=== PATIENT | female | born 1940 | race Caucasian/White ===

== ENCOUNTER 2019-02-11 16:42 | Inpatient (IN) | payer MEDICARE ==
--- NOTE | 2019-02-11 17:17 | ED ---
Upper Extremity Pain - HPI Summary HPI Summary: The patient is a 78 y/o F arriving by ambulance to [facility] accompanied by son with a chief complaint of fall last night. She reports that she was at home and became dizzy, causing her to fall. She is now experiencing pain in the right humerus rated 8/10 in severity. She was administered Fentanyl by EMS. She denies any CP, SOB, or head injury. She was able to ambulate today without pain. Her son reports that he found her on the floor next to her bed last night around 2100, after they had dinner and he left her in the kitchen chair but left the home. She told him that she fell in the bathroom and dragged herself into the bedroom, but she doesn't think she hit her head. Her son notes that she has been falling more frequently over the last six months due to weakness in the legs, and she has had a decreased appetite and confusion as well. He also states that he has noticed low blood pressure and elevated heart rate over the last few months. She lives at home in an apartment across the [address] from her son. She often stays at home in bed. She last fell in July 2018. Son is concerned for Marfan syndrome. PMHx: thyroid disease. Nonsmoker, rare EtOH, no substance use. Medications reviewed. Allergies noted. - History of Current Complaint Chief Complaint: EDFall Stated Complaint: FALL PER EMS Time Seen by Provider: 02/11/19 16:48 Hx Obtained From: Patient Mechanism Of Injury: Fall From A Standing Position Onset/Duration: Started Hours Ago, Traumatic, Still Present Timing: Constant Severity Initially: Moderate Severity Currently: Moderate Pain Location: Arm - right Character: Aching Aggravating Factor(s): Nothing Alleviating Factor(s): Nothing Associated Signs & Symptoms: Positive: Weakness - legs, Other - dizziness; Negative: decreased appetite, pain in legs, episodes of confusion; unsure of head injury. Negative: Chest Pain, SOB - Allergies/Home Medications Allergies/Adverse Reactions: Allergies Allergy/AdvReac Type Severity Reaction Status Date / Time No Known Allergies Allergy Verified 02/11/19 16:51 Home Medications: Home Medications Levothyroxine TAB* [Synthroid TAB*] 88 mcg PO DAILY 02/11/19 [History Confirmed 02/11/19] PMH/Surg Hx/FS Hx/Imm Hx Endocrine/Hematology History: Reports: Hx Thyroid Disease Denies: Hx Diabetes Cardiovascular History: Reports: Hx Hypotension Denies: Hx Hypertension Musculoskeletal History: Denies: Hx Osteoporosis - Surgical History Surgical History: Yes Surgery Procedure, Year, and Place: INGUINAL HERNIA REPAIR Infectious Disease History: Yes Infectious Disease History: Denies: Traveled Outside the [place] in Last 30 Days - Family History Known Family History: Positive: Cardiac Disease Negative: Diabetes - Social History Alcohol Use: Rare Hx Substance Use: No Substance Use Type: Reports: None Hx Tobacco Use: No Smoking Status (MU): Never Smoked Tobacco Review of Systems Negative: Chest Pain Negative: Shortness Of Breath Positive: Other - decreased appetite Neurological: Other - dizziness, episodes of confusion; unsure of head injury Positive: Weakness - legs All Other Systems Reviewed And Are Negative: Yes Physical Exam - Summary Physical Exam Summary: Constitutional: Well-developed, Well-nourished, Alert. (-) Distressed Skin: Warm, Dry HENT: Normocephalic; Atraumatic Eyes: Conjunctiva normal Neck: Musculoskeletal ROM normal neck. Mild tenderness to palpation of the right paraspinal muscles. (-) JVD, (-) Stridor, (-) Tracheal deviation Cardio: Irregularly irregular, rate normal, Heart sounds normal; Intact distal pulses; The pedal pulses are 2+ and symmetric. Radial pulses are 2+ and symmetric. (-) Murmur Pulmonary/Chest wall: Effort normal. (-) Respiratory distress, (-) Wheezes, (-) Rales Abd: Soft, (-) tenderness, (-) Distension, (-) Guarding, (-) Rebound Musculoskeletal: Right shoulder is swollen with a deformity just distal to the shoulder, Good pulses, Neurovascular intact, Left arm is normal(-) Edema Lymph: (-) Cervical adenopathy Neuro: Alert, Oriented x3 but mildly confused Psych: Mood and affect Normal Triage Information Reviewed: Yes Vital Signs On Initial Exam: Initial Vitals Temp Pulse Resp BP Pulse Ox 101.2 F 104 18 111/62 96 02/11/19 16:47 02/11/19 16:47 02/11/19 16:47 02/11/19 16:47 02/11/19 16:47 Vital Signs Reviewed: Yes - [place] Coma Scale Best Eye Response: 4 - Spontaneous Best Motor Response: 6 - Obeys Commands Best Verbal Response: 4 - Confused Coma Scale Total: 14 Procedures - Sedation Patient Received Moderate/Deep Sedation with Procedure: No Diagnostics - Vital Signs Vital Signs Temp Pulse Resp BP Pulse Ox 02/11/19 16:47 101.2 F 104 18 111/62 96 - Laboratory Result Diagrams: 02/11/19 17:51 02/11/19 17:51 Lab Statement: Any lab studies that have been ordered have been reviewed, and results considered in the medical decision making process. - Radiology CXR Radiology Interpretation Completed By: Radiologist Summary of Radiographic Findings: Impression: 1. No evidence for active cardiopulmonary disease. 2. Displaced fracture of the proximal right humerus. ED physician has reviewed this report. R Shoulder XR Radiology Interpretation Completed By: Radiologist Summary of Radiographic Findings: Impression: Displaced fracture of the surgical neck of the humerus. ED physician has reviewed this report. - CT Brain CT CT Interpretation Completed By: Radiologist Summary of CT Findings: Impression: 1. There is age-related diffuse cerebral and cerebellar volume loss and chronic microvascular ischemic disease. 2. No acute intracranial pathology. ED physician has reviewed this report. - EKG 1811 Cardiac Rate: Tachycardia - 102 bpm EKG Rhythm: Sinus Tachycardia Summary of EKG Findings: Sinus tachycardia at 102 bpm, normal [place], normal QRS, normal QTc, normal axis, normal ST, T-wave inversions in V2-V5. Overall nonspecific EKG. ED physician has reviewed and interpreted this EKG. Course/Dx - Course Course Of Treatment: Patient is a 78 year-old female presenting with pain in the left humerus after sustaining a fall last night around 2100 following becoming dizzy. Her son reports that he noticed more frequent falls, decreased appetite, confusion, low blood pressure, and elevated heart rate over the last few months. She denies head injury but is not sure. She spends a lot of time in bed. Physical exam reveals mild tenderness to palpation of the right paraspinal muscles, right shoulder is swollen with a deformity just distal to the shoulder , good pulses, neurovascular intact, left arm is normal, and mild confusion. Blood work reveals WBCs of 12.3, RBCs of 3.22, slight anemia, absolute neutrophils of 10.1, absolute lymphocytes of 0.8, absolute monocytes of 1.2, sodium of 134, chloride of 100, glucose of 137, calcium of 8.4, AST of 40, BNP of 155, total protein of 6.0, and albumin of 3.0. An EKG at 181 reveals sinus tachycardia at 102, overall nonspecific EKG. Brain CT is negative for acute intracranial changes. Chest x-ray is negative for active cardiopulmonary disease but shows displaced fracture of the proximal right humerus. Right shoulder x-ray is positive for displaced fracture of the surgical neck of the humerus. Patient's right arm placed in sling. Dr. Mills from orthopedics will consult for the patient. Dr. Pratt from hospitalist services accepts the patient for admission. Patient understands and agrees with plan. Diagnosis of pre-syncope, mulitple falls, right humerus fracture. - Diagnoses Provider Diagnoses: Pre-syncope, Multiple falls, Right humeral fracture - Physician Notifications Discussed Care of Patient With: Dario Pratt - hospitalist Time Discussed With Above Provider: 20:53 Instructed by Provider To: Other - I discussed the patients case with Dr. Pratt , who accepts the patient for admission. I spoke with Dr. Mills at 2144, and she will do an orthopedic consult for the patient. Discharge ED - Sign-Out/Discharge Documenting (check all that apply): Patient Departure - Patient accepted for admission by Dr. Pratt. - Discharge Plan Condition: Stable Disposition: ADMITTED TO [facility] Referrals: Antonio Cooney MD [Primary Care Provider] - - Billing Disposition and Condition Condition: STABLE Disposition: Admitted to [facility] - Attestation Statements Document Initiated by Dawson: Yes Documenting Scribe: Antionette Green Provider For Whom Dawson is Documenting (Include Credential): Dr. Lisa Baum MD Scribe Attestation: Antionette Mosley, scribed for Dr. Lisa Baum MD on 02/11/19 at 2316. Scribe Documentation Reviewed: Yes Provider Attestation: The documentation as recorded by the Antionette alston accurately reflects the service I personally performed and the decisions made by me, Dr. Lisa Baum MD Status of Scribe Document: Viewed
[2019-02-11 18:05] LABS: ABS Eosinophils 0.1 10^3/ul (0-0.6); ABS Lymphocytes 0.8 10^3/ul (1.0-4.8); ABS Monocytes 1.2 10^3/ul (0-0.8); ABS Neutrophils 10.1 10^3/ul (1.5-7.7); Eosinophil % 0.7 %; Hematocrit 25 % (35-47); Hemoglobin 8.1 g/dL (12.0-16.0); Lymphocyte % 6.9 %; Mean Corpuscular HGB Conc 33 g/dL (31-36); Mean Corpuscular Hemoglobin 25 pg (27-31); Mean Corpuscular Volume 76 fL (80-97); Mean Platelet Volume 7.5 fL (7.4-10.4); Platelet Count 340 10^3/uL (150-450); Red Blood Count 3.22 10^6 /uL (3.70-4.87); Red Cell Distribution Width 17 % (10-15); White Blood Count 12.3 10^3/uL (3.5-10.8)
[2019-02-11 18:27] LABS: BUN/Creatinine Ratio 16.2 (8-20); Calcium 8.4 mg/dL (8.6-10.3); EGFR African American 91.8 (>60); EGFR Non-African American 75.9 (>60); Potassium 4.1 mmol/L (3.5-5.0); Total Bilirubin 0.5 mg/dL (0.2-1.0)
[2019-02-11 18:29] LABS: Troponin I 0.01 ng/mL (<0.03)
[2019-02-12 04:20] LABS: TSH (Thyroid Stimulating Horm) 2.92 mcIU/mL (0.34-5.60)
[2019-02-12 04:22] LABS: Free T4 1.3 ng/dL (0.61-1.12)
[2019-02-12] MEDS: NS 0.9% 1000 ML** 1,000 ML IV SCH ×2 (04:42→15:07)
[2019-02-12] MEDS ORDERED: Ketorolac INJ* 15 MG/ML 1 ML VIAL IV PUSH ONE (04:47)
[2019-02-12] MEDS: Levothyroxine TAB* 88 MCG TAB PO SCH (05:13)
--- NOTE | 2019-02-12 05:42 | HP ---
CC: Dr. Antonio Cooney* ADMISSION HISTORY AND PHYSICAL: DATE OF ADMISSION: 02/12/19 PRIMARY CARE PHYSICIAN: Dr. Antonio Cooney. CHIEF COMPLAINT: Fall. HISTORY OF PRESENT ILLNESS: This is a 78-year-old female with past medical history of hypothyroidism, was brought in by ambulance after a fall, history was obtained by reviewing ER chart as the patient herself had some memory impairment and is unable to give much history. According to records the patient became dizzy and fell and she has been experiencing pain in the right humerus 810 in severity. There is no head injury, any chest pain or shortness of breath and for the last 6 months according to the son the patient has been having recurrent falls and day before yesterday when the patient's son went home he noted that the patient was on her floor next to the bed around 9 p.m. after they had dinner and he left for kitchen and he left her in the kitchen and she told him that she fell in her bathroom and dragged herself into the bedroom. She did not think that she hit her head. Son also stated that the patient had decreased appetite and confusion. The patient herself keeps repeating the question of how she got here, did my son Gerhard bring me here and kept forgetting the scenario as to how she ended up here. She responds to her name, but unable to tell the month or the year. She is otherwise following all commands, and other than the pain from the fracture site she denies any symptoms. PAST MEDICAL HISTORY: History of hypothyroidism. PAST SURGICAL HISTORY: She has had history of hernia repair many years ago. HOME MEDICATIONS: The patient is currently on levothyroxine 88 mcg oral daily. ALLERGIES: No known documented allergies. FAMILY HISTORY: Noncontributory at her age of 78. SOCIAL HISTORY: The patient denies any smoking, alcohol, or drug use. 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 Lives with her son. REVIEW OF SYSTEMS: Unable to obtain due to the patient's mental status. PHYSICAL EXAMINATION GENERAL: The patient is arousable, responds to her name, but unable to answer questions regarding orientation, although she is able to decipher that she is in the hospital and thinks that it was [facility] based on visual inspection, but keeps forgetting the events that caused her to come to the ER VITAL SIGNS: Temperature was documented of 101.2, heart rate was elevated at 106, respiratory rate 20, saturating 94% on room air, BP was noted to be 101/56. HEAD AND NECK: Atraumatic, normocephalic. Bilateral pupils were reactive. Oral mucosa was moist. Neck was supple. No JVD distention. LUNGS: Clear to auscultation bilaterally. No wheezing, rhonchi, rales. HEART: S1, S2. Regular rate and rhythm ABDOMEN: Soft, nontender. EXTREMITIES: The patient had severe tenderness on the right upper extremities, but no cyanosis, clubbing or edema was noted on the lower extremity. DIAGNOSTIC STUDIES/LAB DATA: CBC was minimally elevated white count of 12.3, hemoglobin and hematocrit was stable at 8.1 and 25, platelet count was noted to be 340. Comprehensive metabolic panel was unremarkable. Random glucose minimally elevated at 137. B camelia was noted to be elevated at 155. Troponin negative. Chest x-ray shows no active cardiopulmonary disease and there was a displaced fracture of the proximal right humerus. Brain CT age-related diffuse cerebral and cerebellar volume loss, chronic microvascular ischemic changes. No acute intracranial pathology. EKG shows sinus tachycardia at 102 beats per minute without any ST elevation, no baseline EKG to compare. IMPRESSION: This is a 78-year-old female with a history of hypothyroidism, here with recurrent falls for the last 6 months, noted to be febrile in the ER without any obvious source of infection, although UA is still pending, also noted to have humeral fracture secondary to fall. ASSESSMENT: 1. Recurrent falls and syncope, likely secondary to cerebral atrophy causing balance issues, but will rule out any cardiovascular causes by doing echocardiogram and carotid Doppler's and monitoring her on telemetry in addition to physical therapy evaluation. 2. The SIRS with elevated temperature and elevated white count and tachycardia. We will add blood cultures, urinalysis which was not performed in the ER. We will add straight cath and influenza A and B, and further antibiotic based on these results. 3. Right humeral fracture. Orthopedic consulted by the ER physician, who will evaluate the patient in the morning. In the meantime, we will keep the patient n.p.o. for possible surgical correction. 4. History of hypothyroidism. Restart home medication. 5. Elevated random glucose. We will check an A1c level. 6. DVT prophylaxis with sequential compression device. 7. Code status. We will discuss with the patient's son Yasmany, who is her healthcare proxy. [id number]/[facility] #: [id number] ADRIANA
[2019-02-12 07:33] LABS: Influenza A Molecular NEGATIVE (Negative); Influenza B Molecular NEGATIVE (Negative)
[2019-02-12] MEDS ORDERED: NS 0.9% 1000 ML** 1,000 ML IV ONE ×2 (07:56→13:47)
[2019-02-12] MEDS ORDERED: Morphine INJ* 2 MG/ML 1 ML SYRINGE (TWO MG - NEW SYRINGE VERSION) IV PRN (08:08)
--- NOTE | 2019-02-12 08:17 | PN ---
Subjective Date of Service: 02/12/19 Interval History: Notified by nurse that manual BP was 78/42 manually. Ordered 1L normal saline bolus and came to assess patient. She was partially sitting up in bed, awake, calm and speaking to staff. Denied dizziness or lightheadedness. Reported feeling fatigued and experiencing pain to her right shoulder was confused as to why she could not move it. Alert and oriented to self only, repeated same questions. Did not remember having fallen or how she arrived to the hospital or that she had a fracture. Family History: Unchanged from Admission Social History: Unchanged from Admission Past Medical History: Unchanged from Admission Objective Active Medications: Acetaminophen (Tylenol Tab*) 975 mg PO TID [facility] Sodium Chloride (Ns 0.9% 1000 Ml) 1,000 mls @ 100 mls/hr IV PER RATE [facility] Last Admin: 02/12/19 04:42 Dose: 100 mls/hr Sodium Chloride (Ns 0.9% 1000 Ml) 1,000 mls @ 1,000 mls/hr IV ED ONCE ONE Stop: 02/12/19 08:55 Levothyroxine Sodium (Synthroid Tab*) 88 mcg PO 0600 [facility] Last Admin: 02/12/19 05:13 Dose: 88 mcg Morphine Sulfate (Morphine Inj (Syringe))*) 2 mg IV Q4H PRN PRN Reason: PAIN - SEVERE Tramadol HCl (Ultram*) 50 mg PO Q6H PRN PRN Reason: PAIN - MODERATE Vital Signs - 8 hr 02/12/19 02/12/19 02/12/19 00:18 00:48 01:00 Temperature Pulse Rate 94 97 94 Respiratory 17 25 19 Rate Blood Pressure 107/60 105/58 (mmHg) O2 Sat by Pulse 97 96 96 Oximetry 02/12/19 02/12/19 02/12/19 01:18 01:48 02:00 Temperature Pulse Rate 98 91 Respiratory 25 10 26 Rate Blood Pressure 108/53 92/46 (mmHg) O2 Sat by Pulse 96 95 Oximetry 02/12/19 02/12/19 02/12/19 02:18 02:31 03:00 Temperature Pulse Rate 91 Respiratory 23 14 20 Rate Blood Pressure 100/56 100/56 (mmHg) O2 Sat by Pulse 94 Oximetry 02/12/19 02/12/19 02/12/19 03:18 03:48 04:00 Temperature Pulse Rate 86 101 89 Respiratory 23 24 Rate Blood Pressure 101/56 103/63 (mmHg) O2 Sat by Pulse 90 94 94 Oximetry 02/12/19 02/12/19 02/12/19 04:13 04:45 04:57 Temperature 99.9 F 98.1 F Pulse Rate 99 99 Respiratory 24 18 18 Rate Blood Pressure 103/63 98/50 (mmHg) O2 Sat by Pulse 94 96 Oximetry Oxygen Devices in Use Now: None Appearance: Thin older woman seen resting in bed calmly, no acute distress noted. Eyes: No Scleral Icterus, PERRLA Ears/Nose/Mouth/Throat: NL Teeth, Lips, Gums, Clear Oropharnyx, Mucous Membranes Moist Neck: NL Appearance and Movements; NL JVP, Trachea Midline Respiratory: Symmetrical Chest Expansion and Respiratory Effort, Clear to Auscultation Cardiovascular: NL Sounds; No Murmurs; No JVD, RRR, No Edema Abdominal: NL Sounds; No Tenderness; No Distention Lymphatic: No Cervical Adenopathy Extremities: No Clubbing, Cyanosis, - - Right arm in sling, 2+ radial pulses, cap refill within 3 seconds. Moderate edema to right shoulder. Skin: No Nodules or Sclerosis, - - Bruise forming to anterior right upper arm. Neurological: - - Alert and oriented to self only. Was aware she was in some kind of hospital. Lines/Tubes/Other Access: Clean, Dry and Intact Peripheral IV Result Diagrams: 02/11/19 17:51 02/11/19 17:51 Assess/Plan/Problems-Billing Assessment: This is a 78 year old female with a past medical history of hypothyroidism who was admitted 02/11/19 s/p fall with right humeral fracture. - Patient Problems (1) Right humeral fracture Current Visit: Yes Status: Acute Code(s): S42.301A - UNSP FRACTURE OF SHAFT OF HUMERUS, RIGHT ARM, INIT SNOMED Code(s): 66886798 Comment: -S/P fall at home in her bathroom, unsure of precipitating factors, patient has impaired cognition. Dr. Mills consulted. -Sling right arm at all times with no weight bearing. -I anticipate that she will need PT/OT, subacute rehab. Will keep her NPO until she is seen by Dr. Mills. (2) Anemia Current Visit: Yes Status: Acute Code(s): D64.9 - ANEMIA, UNSPECIFIED SNOMED Code(s): 506410963 Comment: -Arrived anemic without other labs to compare this to. This could either have contributed to the fall or been caused by the humeral fracture. Patient is hypotensive, tachy. Obtained consent for blood transfusion from sonYasmany. Will transfuse one unit. -Checking vit B12, folate, iron studies. (3) Hypotension Current Visit: Yes Status: Acute Comment: -Blood pressure manually was 78/ 42. Feel this is related to her anemia. One liter normal saline bolus ordered. (4) DVT prophylaxis Current Visit: Yes Status: Acute Code(s): Z29.9 - ENCOUNTER FOR PROPHYLACTIC MEASURES, UNSPECIFIED SNOMED Code(s): 277046628 Comment: -Will hold anticoagulants due to anemia with the potential for active bleed. Continue SCD's. Status and Disposition: Condition: Guarded Condition: Admit inpatient to . Attending: Daria Pratt
[2019-02-12] MEDS: Acetaminophen TAB* 325 MG PO SCH ×3 (08:38→20:31)
[2019-02-12 08:52] LABS: Total Iron Binding Capacity 175 mcg/dL (250-450); Transferrin 125 mg/dL (203-362)
[2019-02-12 08:54] LABS: % Iron Saturation 11 % (15-55); Iron < 20 ug/dL (50-212)
[2019-02-12 09:14] LABS: Ferritin 1397.1 ng/mL (11-307)
[2019-02-12 09:18] LABS: Folate 12.22 ng/mL (>3.99)
--- NOTE | 2019-02-12 10:43 | CONS ---
CC: Dr. Mills CONSULTATION REPORT: DATE OF CONSULT: 02/12/19 CHIEF COMPLAINT: Right shoulder pain. HISTORY OF PRESENT ILLNESS: Jo is a 78-year-old woman who lives at home with her son. She has milligan ffered several falls recently. She fell yesterday and injured her right shoulder and was brought to the emergency room. She had an x-ray, which shows a completely displaced fracture of the proximal hu merus, which is extraarticular. She was admitted to the hospital for workup of her syncope. The wor kup revealed that her hemoglobin was 7. Her blood pressure has been quite low at 78 this morning sys tolshilpa, although the patient states that she often has low blood pressure. The patient apparently has some issues with her memory recently and does not exactly remember the sequence of events that led t o the fall. She had a CT scan of her brain, which shows some small vessel changes, but no intracrani al hemorrhage. These small vessel changes could not seem to be the source of her dementia. She has, according to Dede Stanley, a chronic anemia, but this has not been worked up and the source of the a nemia is not apparent right now. PHYSICAL EXAMINATION: On examination of her right upper extremity, she has large swelling of the rig ht shoulder. Her skin is intact. She has normal neurovascular function in her right hand. I reviewed her x-ray as noted above. IMPRESSION: Right proximal humerus fracture. PLAN: This may be surgical, but actually when the patient gets up and we get her into a hanging slin g as possible that the fracture will reduce. I do not feel that surgery should take place until the source of the anemia is figured out and the cause of the syncope as well. The patient is being trans fused today. I will continue to follow her for further planning and treatment of the fracture. [id number]/[id number] #: [id number]
[2019-02-12] MEDS ORDERED: Ferric Gluconate IV* 125 MG in NS 0.9% 100 ML* 100 ML IVPB SCH (12:00)
[2019-02-12] MEDS: Iron Sucrose* 200 MG in NS 0.9% 100 ML* 100 ML IVPB SCH (12:53)
[2019-02-12 18:44] LABS: Hematocrit 24 % (35-47); Hemoglobin 8.1 g/dL (12.0-16.0)
[2019-02-12 23:04] LABS: Urine Appearance Cloudy; Urine Bilirubin Negative (Negative); Urine Blood 3+ (Negative); Urine Color Amber; Urine Glucose Negative (Negative); Urine Ketones Negative (Negative); Urine Nitrite Negative (Negative); Urine Protein Negative (Negative); Urine Specific Gravity 1.015 (1.010-1.030); Urine Urobilinogen Negative (Negative)
[2019-02-12 23:06] LABS: Urine Bacteria 1+ (Absent); Urine Red Blood Cell 3+(>10/hpf) (Absent); Urine Squamous Epithelial Cell Present (Absent); Urine White Blood Cell 3+(>20/hpf) (Absent)
[2019-02-13] MEDS: cefTRIAXone(*) 1 GM in NS 0.9% 50 ML* 50 ML IVPB SCH ×3 (01:04→20:59)
[2019-02-13] MEDS: Levothyroxine TAB* 88 MCG TAB PO SCH (05:07)
[2019-02-13 06:50] LABS: ABS Basophils 0.1 10^3/ul (0-0.2); ABS Eosinophils 0.3 10^3/ul (0-0.6); ABS Lymphocytes 0.9 10^3/ul (1.0-4.8); ABS Monocytes 1.3 10^3/ul (0-0.8); ABS Neutrophils 10.8 10^3/ul (1.5-7.7); Eosinophil % 2.2 %; Hematocrit 25 % (35-47); Lymphocyte % 6.4 %; Mean Corpuscular HGB Conc 32 g/dL (31-36); Mean Corpuscular Hemoglobin 25 pg (27-31); Mean Corpuscular Volume 79 fL (80-97); Mean Platelet Volume 7.7 fL (7.4-10.4); Platelet Count 293 10^3/uL (150-450); Red Blood Count 3.16 10^6 /uL (3.70-4.87); Red Cell Distribution Width 18 % (10-15); White Blood Count 13.4 10^3/uL (3.5-10.8)
[2019-02-13 06:53] LABS: BUN/Creatinine Ratio 23.5 (8-20); EGFR African American 82.7 (>60); EGFR Non-African American 68.4 (>60); Potassium 4.4 mmol/L (3.5-5.0)
[2019-02-13] MEDS: NS 0.9% 1000 ML** 1,000 ML IV SCH (07:25)
[2019-02-13] MEDS: Acetaminophen TAB* 325 MG PO SCH ×3 (10:05→20:59)
[2019-02-13] MEDS: Iron Sucrose* 200 MG in NS 0.9% 100 ML* 100 ML IVPB SCH (10:06)
--- NOTE | 2019-02-13 10:18 | PN ---
Progress Note - Progress Note Date of Service: 02/13/19 SOAP: Subjective: [Pt was seen this am sitting up in bed. She states that she is doing well. Pain in the left shoulder at this point. She denies any numbness or tingling, no other joint pain. ] Objective: [General: The pt is alert and awake. NAD MSK, LLE: Sling is off at this point. I placed the sling in the proper place. She does have TTP along the proximal humerus. She is NVI distally. 2+ radial pulse. ] Vital Signs Temp 97.3 F 02/13/19 03:35 Pulse 80 02/13/19 03:35 Resp 16 02/13/19 03:35 BP 83/47 02/13/19 03:35 Pulse Ox 97 02/13/19 03:35 Intake & Output 02/12/19 02/13/19 02/13/19 18:59 06:59 18:59 Intake Total 2871 50 Output Total 0 Balance 2871 50 Intake: IV Fluids 1980 NS 1980 IVPB 110 50 ABX - CEFTRIAXONE 50 Iron 110 Oral 480 0 Packed Cells 300 Output: Urine 0 Other: # Voids 1 Assessment: [Right proximal humerus fracture ] Plan: [Continue with sling at all times Pain medication as needed Will need medical optimization per hospitalists team Blood transfusion yesterday, H&H not improved. ]
--- NOTE | 2019-02-13 11:11 | ECHO ---
*[facility]* [place] [address] Fax #: [phone] Transthoracic Echocardiogram Patient: Jo Sarmiento : 1940 Study Date: 02/13/2019 Age: 78 Gender: F HR: 81 bpm Height: 69 in /175.3 cm BSA: 1.66 m^2 Weight: 119.8 lb /54.4 kg BMI: 17.7 kg/m^2 *Costume Seamstress: * Whitley Jolly [facility] *Referring Physician: * Dario Pratt *Reading Physician: * Ryne Meadows MD Indications: Syncope. History: Hypothyroidism, recent falls. Conclusions Summary: - Left ventricle: Systolic function is normal. The estimated ejection fraction is 60-65%. Wall motion is overall normal; there are no definite regional wall motion abnormalities. However, the distal lateral wall was visualized suboptimally; cannot exclude subtle relative hypokinesis versus artfiact. Doppler parameters are consistent with abnormal left ventricular relaxation (grade 1 diastolic dysfunction). - Right ventricle: The cavity size is mildly dilated. - Mitral valve: There is mild regurgitation, with multiple jets. - Tricuspid valve: There is mild regurgitation. Study data: Transthoracic echocardiogram. Procedure: Transthoracic echocardiography was performed. Image quality was good. Complete 2D, spectral Doppler, and color flow Doppler. Location: Bedside. Patient status: Inpatient. Patient room number: 449-02. No prior study is available for comparison. Rhythm: Normal sinus rhythm with PVC's. Findings Left ventricle: The cavity size is normal. Wall thickness is normal. Systolic function is normal. The estimated ejection fraction is 60-65%. Wall motion is normal; there are no regional wall motion abnormalities. However, the distal lateral wall was visualized suboptimally; cannot exclude subtle relative hypokinesis versus artfiact. Doppler parameters are consistent with abnormal left ventricular relaxation (grade 1 diastolic dysfunction). Right ventricle: The cavity size is mildly dilated. Systolic function is normal. Left atrium: The atrium is normal in size. Right atrium: The atrium is normal in size. The Eustachian valve appeared prominant. 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 Mitral valve: The leaflets are mildly thickened. Borderline Prolapse. There is no evidence of stenosis. There is mild regurgitation, with multiple jets. Aortic valve: The valve is trileaflet. The leaflets are mildly thickened. There is no evidence of stenosis. There is trace regurgitation. Tricuspid valve: The leaflets are normal thickness. There is no evidence of stenosis. There is mild regurgitation. Pulmonic valve: The leaflets are normal thickness. There is no evidence of stenosis. There is trace regurgitation. Aorta: Aortic root: The aortic root is appears normal. Ascending aorta: The ascending aorta is appears normal. Aortic arch: The aortic arch is appears normal. Pericardium: The amount of pericardial fluid appears to be at the upper limits of normal. Doppler: Features are not consistent with tamponade physiology. Pulmonary arteries: The main pulmonary artery is normal-sized. Systolic pressure is within the normal range. Systemic veins: Inferior vena cava: The vessel is normal in size. There is (>= 50%) respiratory change in the IVC dimension. Measurements Left ventricle Value Ref Aortic valve Value Ref HAILEE, LAX 4.3 cm 3.8 - 5.2 Puja diam, ED 1.9 cm ----- ESD, LAX 2.8 cm 2.2 - 3.5 Peak v, S 1.12 m/sec ----- FS, LAX 34 % 27 - 45 VTI, S 21.8 cm ----- PW, ED, LAX 0.8 cm 0.6 - 0.9 Mean grad, S 2.0 mm Hg ----- FS 34 % 27 - 45 Peak grad, S 5.0 mm Hg ----- PW, ED 0.8 cm 0.6 - 0.9 LVOT/AV, VTI ratio 0.73 ----- E', lat puja, TDI (L) 9.5 cm/sec >=10.0 E/e', lat puja, 6 Mitral valve Value Ref TDI Peak E 0.6 m/sec ----- E', med puja, TDI 7.6 cm/sec >=7.0 Peak A 0.4 m/sec --- -- E/e', med puja, 8 Decel time 190 ms ----- TDI Peak E/A ratio 1.5 ----- E', avg, TDI 8.6 cm/sec E/e', avg, TDI 7 <=14 Pulmonic valve Value Ref Peak v, S 0.86 m/sec ----- LVOT Value Ref Peak grad, S 3.0 mm Hg ----- Peak damien, S 0.81 m/sec VTI, S 16.0 cm Tricuspid valve Value Ref Mean grad, S 1 mm Hg TR peak v 2.2 m/sec <=2.8 Peak RV-RA grad, S 19 mm Hg ----- Ventricular septum Value Ref IVS, ED 0.8 cm 0.6 - 0.9 Aortic root Value Ref Root diam 3.0 cm <3.9 Right ventricle Value Ref HAILEE, LAX 2.9 cm Ascending aorta Value Ref HAILEE minor ax, A4C (H) 3.9 cm 1.9 - 3.5 AAo AP diam, S 3.1 cm ----- mid Pressure, S 22 mm Hg Aortic arch Value Ref Arch diam 2.3 cm ----- Left atrium Value Ref AP dim, ES 3.00 cm 2.70 - Decending aorta Value Ref 3.80 Titi peak damien 0.54 m/sec ----- ML dim, A4C 4.3 cm SI dim, A4C 4.8 cm Pulmonary artery Value Ref Vol/bsa, ES, 1-p 24 ml/m^2 11 - 40 Pressure, S 19.0 mm Hg ----- A4C Vol/bsa, ES, A/L 30 ml/m^2 16 - 34 Inferior vena cava Value Ref Diam 1.1 cm ----- Right atrium Value Ref SI dim, ES 4.4 cm 3.4 - 5.3 ML dim, ES, A4C 3.9 cm 2.6 - 4.4 SI dim, ES, A4C 4.4 cm 3.4 - 5.3 SI dim/bsa, ES, 2.6 cm/m^2 1.9 - 3.1 A4C Estimated RAP 3 mm Hg Legend: (L) and (H) susanne values outside specified reference range. Prepared and electronically signed by Ryne Meadows MD 02/13/2019 11:09
[2019-02-13] MEDS: traMADol TAB* 50 MG PO PRN ×2 (16:25→23:10)
[2019-02-13] MEDS: Magnesium Hydroxide LIQ* 30 ML UDC PO PRN (16:26)
[2019-02-13] MEDS: Docusate CAP* 100 MG PO PRN ×2 (16:26→20:59)
--- NOTE | 2019-02-13 18:58 | PN ---
Subjective Date of Service: 02/13/19 Interval History: Patient is continuing to report pain to left shoulder, which appears to have reduced in size since yesterday. Has been hesitant to get out of bed for nursing staff, likely due to pain. She maintains a relatively flat aspect. Denies dizziness, lightheadedness, fever, chills, palpitations, chest pain, nausea, vomiting. Family History: Unchanged from Admission Social History: Unchanged from Admission Past Medical History: Unchanged from Admission Objective Active Medications: Acetaminophen (Tylenol Tab*) 975 mg PO TID [facility] Last Admin: 02/13/19 14:11 Dose: 975 mg Docusate Sodium (Colace Cap*) 100 mg PO BID PRN PRN Reason: CONSTIPATION Last Admin: 02/13/19 16:26 Dose: 100 mg Sodium Chloride (Ns 0.9% 1000 Ml) 1,000 mls @ 100 mls/hr IV PER RATE [facility] Last Admin: 02/13/19 07:25 Dose: 100 mls/hr Iron Sucrose 200 mg/ Sodium (Chloride) 110 mls @ 110 mls/hr IVPB DAILY [facility] Stop: 02/16/19 09:59 Last Admin: 02/13/19 10:06 Dose: 110 mls/hr Ceftriaxone Sodium 1 gm/ (Sodium Chloride) 50 mls @ 100 mls/hr IVPB BEDTIME [facility] Levothyroxine Sodium (Synthroid Tab*) 88 mcg PO 0600 [facility] Last Admin: 02/13/19 05:07 Dose: 88 mcg Magnesium Hydroxide (Milk Of Magnesia Liq*) 30 ml PO Q6H PRN PRN Reason: CONSTIPATION Last Admin: 02/13/19 16:26 Dose: 30 ml Morphine Sulfate (Morphine Inj (Syringe))*) 2 mg IV Q4H PRN PRN Reason: PAIN - SEVERE Senna (Senokot 8.6 Mg Tab*) 1 tab PO BEDTIME [facility] Tramadol HCl (Ultram*) 50 mg PO Q6H PRN PRN Reason: PAIN - MODERATE Last Admin: 02/13/19 16:25 Dose: 50 mg Vital Signs - 8 hr 02/13/19 02/13/19 02/13/19 12:05 12:25 16:25 Temperature 98.3 F 98.0 F Pulse Rate 90 86 Respiratory 17 17 15 Rate Blood Pressure 91/48 90/55 (mmHg) O2 Sat by Pulse 97 97 Oximetry Oxygen Devices in Use Now: None Appearance: This is a well developed, thin older woman seen sitting up in bed. No acute distress. Eyes: No Scleral Icterus, PERRLA Ears/Nose/Mouth/Throat: NL Teeth, Lips, Gums, Mucous Membranes Moist Neck: NL Appearance and Movements; NL JVP, Trachea Midline Respiratory: Symmetrical Chest Expansion and Respiratory Effort, Clear to Auscultation Cardiovascular: NL Sounds; No Murmurs; No JVD, RRR, No Edema Abdominal: NL Sounds; No Tenderness; No Distention Lymphatic: No Cervical Adenopathy Extremities: No Clubbing, Cyanosis, - - Cap refill within 3 seconds to right hand, skin is warm, no edema noted to hand. mild edema to right shoulder. Skin: No Rash or Ulcers, No Nodules or Sclerosis, - - Bruise to anterior right upper arm. Neurological: Alert and Oriented x 3 Lines/Tubes/Other Access: Clean, Dry and Intact Peripheral IV Result Diagrams: 02/13/19 06:18 02/13/19 06:18 Microbiology and Other Data: Microbiology 02/12/19 05:05 Aerobic Blood Culture - Preliminary Blood Venous No Growth Day 1 Anaerobic Blood Culture - Preliminary No Growth Day 1 02/12/19 05:02 Aerobic Blood Culture - Preliminary Blood Venous No Growth Day 1 Anaerobic Blood Culture - Preliminary No Growth Day 1 Assess/Plan/Problems-Billing Assessment: This is a 78 year old female with a past medical history of hypothyroidism who was admitted 02/11/19 s/p fall with right humeral fracture. - Patient Problems (1) Right humeral fracture Current Visit: Yes Status: Acute Code(s): S42.301A - UNSP FRACTURE OF SHAFT OF HUMERUS, RIGHT ARM, INIT SNOMED Code(s): 47440499 Comment: -S/P fall at home in her bathroom, unsure of precipitating factors, patient has impaired cognition. Dr. Mills consulted, she needs to be medically optimized before surgery. -Sling right arm at all times with no weight bearing. -I anticipate that she will need PT/OT, subacute rehab. -RCRI score of 0 which equals a 3.9% 30 day risk of , CT, or cardiac arrest. METS: <4. -Echo showed EF 60-65%. Awaiting EKG and carotid doppler. (2) Anemia Current Visit: Yes Status: Acute Code(s): D64.9 - ANEMIA, UNSPECIFIED SNOMED Code(s): 815863114 Comment: -Arrived anemic without other labs to compare this to. This could either have contributed to the fall or been caused by the humeral fracture. -Labs showed significant iron deficiency anemia. Started 5 day course of iron sucrase. Had one unit PRBC yesterday and another one today. -Awaiting guiac. (3) Hypotension Current Visit: Yes Status: Acute Comment: -Received two liters of NS and one unit PRBC yesterday with very modest improvement in BP. -Second unit of PRBC ordered for today. Patient is asymptomatic. (4) DVT prophylaxis Current Visit: Yes Status: Acute Code(s): Z29.9 - ENCOUNTER FOR PROPHYLACTIC MEASURES, UNSPECIFIED SNOMED Code(s): 093825062 Comment: -Will hold anticoagulants due to anemia with the potential for active bleed. Continue SCD's. Status and Disposition: Condition: Guarded Condition: Admit inpatient to . Attending: Daria Pratt
[2019-02-13] MEDS: Senna TAB 8.6 mg* TAB PO SCH (20:59)
[2019-02-14] MEDS: NS 0.9% 1000 ML** 1,000 ML IV SCH ×2 (02:48→21:15)
[2019-02-14] MEDS: Levothyroxine TAB* 88 MCG TAB PO SCH (04:58)
[2019-02-14] MEDS: Ondansetron INJ* 2 MG/ML VIAL IV PRN ×3 (04:59→18:13)
[2019-02-14 06:10] LABS: Hematocrit 30 % (35-47); Hemoglobin 9.9 g/dL (12.0-16.0); Mean Corpuscular HGB Conc 33 g/dL (31-36); Mean Corpuscular Hemoglobin 26 pg (27-31); Mean Corpuscular Volume 78 fL (80-97); Mean Platelet Volume 7.4 fL (7.4-10.4); Platelet Count 349 10^3/uL (150-450); Red Blood Count 3.89 10^6 /uL (3.70-4.87); Red Cell Distribution Width 18 % (10-15); White Blood Count 16.8 10^3/uL (3.5-10.8)
[2019-02-14] MEDS: Acetaminophen TAB* 325 MG PO SCH ×3 (07:29→20:36)
[2019-02-14] MEDS: traMADol TAB* 50 MG PO PRN (07:32)
[2019-02-14] MEDS: Iron Sucrose* 200 MG in NS 0.9% 100 ML* 100 ML IVPB SCH (08:40)
[2019-02-14] MEDS ORDERED: NS 0.9% 1000 ML** 1,000 ML IV ONE (11:09)
[2019-02-14] MEDS: oxyCODONE TAB* 5 MG TAB PO PRN (13:08)
--- NOTE | 2019-02-14 15:34 | PN ---
Subjective Date of Service: 02/14/19 Interval History: Patient seen right after physical therapy got her out of bed. Stated she felt lightheaded, worse with head movement, nauseated. Pain in right arm is not well controlled with tylenol and tramadol. Denies fever, chills, chest pain, palpitations, vomiting, issues moving bowel or bladder. Family History: Unchanged from Admission Social History: Unchanged from Admission Past Medical History: Unchanged from Admission Objective Active Medications: Acetaminophen (Tylenol Tab*) 975 mg PO TID [facility] Last Admin: 02/14/19 13:08 Dose: 975 mg Docusate Sodium (Colace Cap*) 100 mg PO BID PRN PRN Reason: CONSTIPATION Last Admin: 02/13/19 20:59 Dose: 100 mg Sodium Chloride (Ns 0.9% 1000 Ml) 1,000 mls @ 100 mls/hr IV PER RATE [facility] Last Admin: 02/14/19 02:48 Dose: 100 mls/hr Iron Sucrose 200 mg/ Sodium (Chloride) 110 mls @ 110 mls/hr IVPB DAILY [facility] Stop: 02/16/19 09:59 Last Admin: 02/14/19 08:40 Dose: 110 mls/hr Ceftriaxone Sodium 1 gm/ (Sodium Chloride) 50 mls @ 100 mls/hr IVPB BEDTIME [facility] Last Admin: 02/13/19 20:59 Dose: 100 mls/hr Levothyroxine Sodium (Synthroid Tab*) 88 mcg PO 0600 [facility] Last Admin: 02/14/19 04:58 Dose: 88 mcg Magnesium Hydroxide (Milk Of Magnesia Liq*) 30 ml PO Q6H PRN PRN Reason: CONSTIPATION Last Admin: 02/13/19 16:26 Dose: 30 ml Ondansetron HCl (Zofran Inj*) 4 mg IV Q6H PRN PRN Reason: NAUSEA/VOMITING Last Admin: 02/14/19 11:34 Dose: 4 mg Oxycodone HCl (Roxycodone Tab*) 5 mg PO Q6H PRN PRN Reason: PAIN - SEVERE Last Admin: 02/14/19 13:08 Dose: 5 mg Senna (Senokot 8.6 Mg Tab*) 1 tab PO BEDTIME [facility] Last Admin: 02/13/19 20:59 Dose: 1 tab Tramadol HCl (Ultram*) 50 mg PO Q6H PRN PRN Reason: PAIN - MODERATE Last Admin: 02/14/19 07:32 Dose: 50 mg Vital Signs - 8 hr 02/14/19 02/14/19 02/14/19 07:32 08:00 11:15 Temperature 97.4 F Pulse Rate 88 Respiratory 16 20 20 Rate Blood Pressure 93/60 (mmHg) O2 Sat by Pulse 98 Oximetry 02/14/19 13:08 Temperature Pulse Rate Respiratory 20 Rate Blood Pressure (mmHg) O2 Sat by Pulse Oximetry Oxygen Devices in Use Now: None Appearance: This is a thin, well developed older adult seen sitting up in chair , mildly distressed. Eyes: No Scleral Icterus, PERRLA Ears/Nose/Mouth/Throat: NL Teeth, Lips, Gums, Clear Oropharnyx, Mucous Membranes Moist Neck: NL Appearance and Movements; NL JVP, Trachea Midline Respiratory: Symmetrical Chest Expansion and Respiratory Effort, Clear to Auscultation Cardiovascular: NL Sounds; No Murmurs; No JVD, RRR, No Edema Abdominal: NL Sounds; No Tenderness; No Distention Extremities: No Clubbing, Cyanosis, - - Minimal edema to right upper arm, improved from yesterday. Skin: No Rash or Ulcers, No Nodules or Sclerosis, - - Bruising noted to anterior right upper arm, slightly improved from yesterday. Neurological: Alert and Oriented x 3 Lines/Tubes/Other Access: Clean, Dry and Intact Peripheral IV Result Diagrams: 02/14/19 05:55 02/13/19 06:18 Microbiology and Other Data: Microbiology 02/12/19 05:05 Aerobic Blood Culture - Preliminary Blood Venous No Growth Day 1 Anaerobic Blood Culture - Preliminary No Growth Day 1 02/12/19 05:02 Aerobic Blood Culture - Preliminary Blood Venous No Growth Day 1 Anaerobic Blood Culture - Preliminary No Growth Day 1 Assess/Plan/Problems-Billing Assessment: This is a 78 year old female with a past medical history of hypothyroidism who was admitted 02/11/19 s/p fall with right humeral fracture. - Patient Problems (1) UTI (urinary tract infection) Current Visit: Yes Status: Acute Comment: -Urine cultlure preliminarily growing E. coli. Has gotten two doses of ceftriaxone, though she seems to not be responding as WBC's have increased every day, though she remains afebrile. Could be contributing to her hypotension. (2) Right humeral fracture Current Visit: Yes Status: Acute Code(s): S42.301A - UNSP FRACTURE OF SHAFT OF HUMERUS, RIGHT ARM, INIT SNOMED Code(s): 42621395 Comment: -S/P fall at home in her bathroom, likely due to UTI and anemia. -Dr. Mills consulted, she needs to be medically optimized before surgery. -Sling right arm at all times with no weight bearing. -I anticipate that she will need PT/OT, subacute rehab. -RCRI score of 0 which equals a 3.9% 30 day risk of , [place], or cardiac arrest. METS: <4. -Echo showed EF 60-65%. Carotids are negative for occlusions. (3) Anemia Current Visit: Yes Status: Acute Code(s): D64.9 - ANEMIA, UNSPECIFIED SNOMED Code(s): 047078297 Comment: -Arrived anemic without other labs to compare this to. This could either have contributed to the fall or been caused by the humeral fracture. -Labs showed significant iron deficiency anemia. Started 5 day course of iron sucrase. Had one unit PRBC yesterday and another one today. -Awaiting guiac. (4) Hypotension Current Visit: Yes Status: Acute Comment: -Ongoing. Not symptomatic at rest , but symptomatic with changes in position. Bolused with another liter of fluid today. (5) DVT prophylaxis Current Visit: Yes Status: Acute Code(s): Z29.9 - ENCOUNTER FOR PROPHYLACTIC MEASURES, UNSPECIFIED SNOMED Code(s): 343762730 Comment: -Will hold anticoagulants due to anemia with the potential for active bleed. Continue SCD's. Status and Disposition: Condition: Guarded Condition: Admit inpatient to . Attending: Daria Pratt
--- NOTE | 2019-02-14 16:46 | PN ---
Progress Note - Progress Note Date of Service: 02/14/19 Note: Patient resting comfortably in bed with her right arm out of her sling. She denies pain in her arm but says "it's a mess". She reports feeling tired, but denies CP, SOB or calf pain. Skin is intact on right arm and shows ecchymosis with edema at the elbow. Sensation is intact with 2+ radial pulse. She has AROM in 4 planes in the right wrist without pain. She forms a full fist. I placed her back in the sling and encouraged her to move her wrist and fingers. She will continue pain management and once medically stable she may be a candidate for surgical repair, depending on humeral alignment. We will continue to monitor and give future recommendations.
[2019-02-14] MEDS: cefTRIAXone(*) 1 GM in NS 0.9% 50 ML* 50 ML IVPB SCH (20:37)
[2019-02-14] MEDS: Senna TAB 8.6 mg* TAB PO SCH (20:37)
[2019-02-15 05:04] LABS: Hematocrit 30 % (35-47); Hemoglobin 9.5 g/dL (12.0-16.0); Mean Corpuscular HGB Conc 32 g/dL (31-36); Mean Corpuscular Hemoglobin 25 pg (27-31); Mean Corpuscular Volume 79 fL (80-97); Mean Platelet Volume 7.5 fL (7.4-10.4); Platelet Count 341 10^3/uL (150-450); Red Blood Count 3.76 10^6 /uL (3.70-4.87); Red Cell Distribution Width 19 % (10-15); White Blood Count 17.9 10^3/uL (3.5-10.8)
[2019-02-15 05:06] LABS: ABS Basophils 0.1 10^3/ul (0-0.2); ABS Eosinophils 0.1 10^3/ul (0-0.6); ABS Lymphocytes 0.9 10^3/ul (1.0-4.8); ABS Monocytes 1.8 10^3/ul (0-0.8); ABS Neutrophils 15.1 10^3/ul (1.5-7.7); Eosinophil % 0.4 %; Nucleated Red Blood Cells % 0.1
[2019-02-15] MEDS: Levothyroxine TAB* 88 MCG TAB PO SCH (05:52)
[2019-02-15] MEDS: Acetaminophen TAB* 325 MG PO SCH ×3 (08:03→20:28)
[2019-02-15] MEDS: Iron Sucrose* 200 MG in NS 0.9% 100 ML* 100 ML IVPB SCH (09:28)
[2019-02-15] MEDS: NS 0.9% 1000 ML** 1,000 ML IV SCH ×2 (09:28→20:32)
--- NOTE | 2019-02-15 10:53 | PN ---
Progress Note - Progress Note Date of Service: 02/15/19 SOAP: Subjective: [Pt was seen this am sitting up in bed. She states that she is doing well. Pain in the left shoulder at this point. She denies any numbness or tingling, no other joint pain. ] Objective: [General: The pt is alert and awake. NAD MSK, LLE: Sling in proper place. She does have TTP along the proximal humerus. Full ROM of the wrist and all digits. She is NVI distally. 2+ radial pulse. ] Vital Signs Temp 98.2 F 02/15/19 07:15 Pulse 92 02/15/19 07:15 Resp 16 02/15/19 08:00 BP 97/59 02/15/19 07:15 Pulse Ox 97 02/15/19 07:15 Intake & Output 02/14/19 02/15/19 02/15/19 18:59 06:59 18:59 Intake Total 150 1294 1341 Output Total 200 200 Balance 150 1094 1141 Intake: IV Fluids 100 1054 1101 ABX - CEFTRIAXONE 50 Iron 100 NS 1004 1101 Oral 50 240 240 Output: Urine 200 200 Assessment: [Right proximal humerus fracture ] Plan: [Continue with sling at all times Pain medication as needed Will need medical optimization per hospitalists team H&H improving Awaiting culture sensitives to result to treat UTI.
--- NOTE | 2019-02-15 16:29 | PN ---
Subjective Date of Service: 02/15/19 Interval History: Sitting up in chair, eating lunch with son. Appetite is better today than it was yesterday. Patient is continuing to feel lightheaded, though improved over yesterday. Patient seems to be a little forgetful, forgets that she broke her arm and asks why she can lift it. She also is concerned about having had a stroke because she can't lift her left leg as high off the ground as she can with her right. No other neurological symptoms. Repeats questions. Denies chest pain, palpitations, fever, chills, nausea, vomiting, abdominal pain. Voiding minimal but adequate amounts. Family History: Unchanged from Admission Social History: Unchanged from Admission Past Medical History: Unchanged from Admission Objective Active Medications: Acetaminophen (Tylenol Tab*) 975 mg PO TID [facility] Last Admin: 02/15/19 14:16 Dose: 975 mg Docusate Sodium (Colace Cap*) 100 mg PO BID PRN PRN Reason: CONSTIPATION Last Admin: 02/13/19 20:59 Dose: 100 mg Sodium Chloride (Ns 0.9% 1000 Ml) 1,000 mls @ 100 mls/hr IV PER RATE [facility] Last Admin: 02/15/19 09:28 Dose: 100 mls/hr Iron Sucrose 200 mg/ Sodium (Chloride) 110 mls @ 110 mls/hr IVPB DAILY [facility] Stop: 02/16/19 09:59 Last Admin: 02/15/19 09:28 Dose: 110 mls/hr Ceftriaxone Sodium 1 gm/ (Sodium Chloride) 50 mls @ 100 mls/hr IVPB BEDTIME [facility] Last Admin: 02/14/19 20:37 Dose: 100 mls/hr Levothyroxine Sodium (Synthroid Tab*) 88 mcg PO 0600 [facility] Last Admin: 02/15/19 05:52 Dose: 88 mcg Magnesium Hydroxide (Milk Of Magnesia Liq*) 30 ml PO Q6H PRN PRN Reason: CONSTIPATION Last Admin: 02/13/19 16:26 Dose: 30 ml Midodrine (Midodrine) 5 mg PO TID [facility]; Protocol Last Admin: 02/15/19 14:20 Dose: 5 mg Ondansetron HCl (Zofran Inj*) 4 mg IV Q6H PRN PRN Reason: NAUSEA/VOMITING Last Admin: 02/14/19 18:13 Dose: 4 mg Oxycodone HCl (Roxycodone Tab*) 5 mg PO Q6H PRN PRN Reason: PAIN - SEVERE Last Admin: 02/14/19 13:08 Dose: 5 mg Senna (Senokot 8.6 Mg Tab*) 1 tab PO BEDTIME [facility] Last Admin: 02/14/19 20:37 Dose: 1 tab Tramadol HCl (Ultram*) 50 mg PO Q6H PRN PRN Reason: PAIN - MODERATE Last Admin: 02/14/19 07:32 Dose: 50 mg Vital Signs - 8 hr 02/15/19 11:13 Temperature 97.3 F Pulse Rate 91 Respiratory 16 Rate Blood Pressure 84/49 (mmHg) O2 Sat by Pulse 98 Oximetry Oxygen Devices in Use Now: None Appearance: Well developed woman seen sitting up in bed, no acute distress. Eyes: No Scleral Icterus, PERRLA Ears/Nose/Mouth/Throat: NL Teeth, Lips, Gums, Clear Oropharnyx, Mucous Membranes Moist Neck: NL Appearance and Movements; NL JVP, Trachea Midline Respiratory: Symmetrical Chest Expansion and Respiratory Effort, Clear to Auscultation Cardiovascular: NL Sounds; No Murmurs; No JVD, RRR, No Edema Abdominal: NL Sounds; No Tenderness; No Distention Lymphatic: No Cervical Adenopathy Extremities: No Edema, No Clubbing, Cyanosis, - - Sling in place to right arm. Cap refill within 3 seconds to fingers, 2+ radial pulses. Hand grasps equal. Trace edema to right shoulder. Skin: No Rash or Ulcers, No Nodules or Sclerosis, - - Healing bruise to right anterior forearm Neurological: Alert and Oriented x 3 Lines/Tubes/Other Access: Clean, Dry and Intact Peripheral IV Result Diagrams: 02/15/19 04:43 02/13/19 06:18 Microbiology and Other Data: Microbiology 02/12/19 05:05 Aerobic Blood Culture - Preliminary Blood Venous No Growth Day 1 Anaerobic Blood Culture - Preliminary No Growth Day 1 02/12/19 05:02 Aerobic Blood Culture - Preliminary Blood Venous No Growth Day 1 Anaerobic Blood Culture - Preliminary No Growth Day 1 Assess/Plan/Problems-Billing Assessment: This is a 78 year old female with a past medical history of hypothyroidism who was admitted 02/11/19 s/p fall with right humeral fracture. - Patient Problems (1) UTI (urinary tract infection) Current Visit: Yes Status: Acute Comment: -Urine culture revealed E. coli growth. Continue ceftriaxone. I feel that there is another cause for her leukocytosis. (2) Right humeral fracture Current Visit: Yes Status: Acute Code(s): S42.301A - UNSP FRACTURE OF SHAFT OF HUMERUS, RIGHT ARM, INIT SNOMED Code(s): 29366029 Comment: -S/P fall at home in her bathroom, likely due to UTI and anemia. -Dr. Mills consulted, she needs to be medically optimized before surgery. -Sling right arm at all times with no weight bearing. -I anticipate that she will need PT/OT, subacute rehab. -RCRI score of 0 which equals a 3.9% 30 day risk of , [place], or cardiac arrest. METS: <4. -Echo showed EF 60-65%. Carotids are negative for occlusions. (3) Anemia Current Visit: Yes Status: Acute Code(s): D64.9 - ANEMIA, UNSPECIFIED SNOMED Code(s): 269835119 Comment: -Arrived anemic without other labs to compare this to. This could either have contributed to the fall or been caused by the humeral fracture. -Labs showed significant iron deficiency anemia. Continue course of iron sucrose and has received a total of 2 PRBC. -Awaiting guiac. -It is possible there is retroperitoneal bleeding which could explain acute anemia as well as leukocytosis. CT of chest/abdomen/pelvis ordered. (4) Hypotension Current Visit: Yes Status: Acute Comment: -Ongoing. Not symptomatic at rest , but symptomatic with changes in position. Bolused with another liter of fluid today. Cortisol level normal. (5) DVT prophylaxis Current Visit: Yes Status: Acute Code(s): Z29.9 - ENCOUNTER FOR PROPHYLACTIC MEASURES, UNSPECIFIED SNOMED Code(s): 914144123 Comment: -Will hold anticoagulants due to anemia with the potential for active bleed. Continue SCD's. Status and Disposition: Condition: Guarded Condition: Admit inpatient to . Attending: Philomena Sylvester
[2019-02-15] MEDS: cefTRIAXone(*) 1 GM in NS 0.9% 50 ML* 50 ML IVPB SCH (20:27)
[2019-02-15] MEDS: Senna TAB 8.6 mg* TAB PO SCH (20:28)
[2019-02-16] MEDS: NS 0.9% 1000 ML** 1,000 ML IV SCH (05:18)
[2019-02-16] MEDS: Levothyroxine TAB* 88 MCG TAB PO SCH (05:19)
[2019-02-16] MEDS: traMADol TAB* 50 MG PO PRN (05:24)
[2019-02-16 07:08] LABS: ABS Basophils 0.1 10^3/ul (0-0.2); ABS Eosinophils 0.1 10^3/ul (0-0.6); ABS Lymphocytes 1.1 10^3/ul (1.0-4.8); ABS Monocytes 1.4 10^3/ul (0-0.8); ABS Neutrophils 11.5 10^3/ul (1.5-7.7); Hematocrit 26 % (35-47); Hemoglobin 8.8 g/dL (12.0-16.0); Lymphocyte % 7.8 %; Mean Corpuscular HGB Conc 33 g/dL (31-36); Mean Corpuscular Hemoglobin 27 pg (27-31); Mean Corpuscular Volume 80 fL (80-97); Mean Platelet Volume 7.3 fL (7.4-10.4); Platelet Count 303 10^3/uL (150-450); Red Cell Distribution Width 19 % (10-15); White Blood Count 14.3 10^3/uL (3.5-10.8)
[2019-02-16 07:23] LABS: Phosphorus 2.9 mg/dL (2.5-5.0); Uric Acid 5.4 mg/dL (2.3-6.6)
[2019-02-16] MEDS: oxyCODONE TAB* 5 MG TAB PO PRN ×2 (08:13→20:13)
[2019-02-16] MEDS: Acetaminophen TAB* 325 MG PO SCH ×3 (08:14→20:13)
--- NOTE | 2019-02-16 08:57 | PN ---
Subjective Date of Service: 02/16/19 Interval History: Pt is feeling ok this am but does have some discomfort in her R arm. She has been able to feed herself with the left. No lightheadedness or dizziness. No chest pain. Objective Active Medications: Acetaminophen (Tylenol Tab*) 975 mg PO TID [facility] Last Admin: 02/16/19 08:14 Dose: 975 mg Docusate Sodium (Colace Cap*) 100 mg PO BID PRN PRN Reason: CONSTIPATION Last Admin: 02/13/19 20:59 Dose: 100 mg Iron Sucrose 200 mg/ Sodium (Chloride) 110 mls @ 110 mls/hr IVPB DAILY [facility] Stop: 02/16/19 09:59 Last Admin: 02/15/19 09:28 Dose: 110 mls/hr Ceftriaxone Sodium 1 gm/ (Sodium Chloride) 50 mls @ 100 mls/hr IVPB BEDTIME [facility] Last Admin: 02/15/19 20:27 Dose: 100 mls/hr Sodium Chloride (Ns 0.9% 1000 Ml) 1,000 mls @ 125 mls/hr IV PER RATE [facility] Last Admin: 02/16/19 05:18 Dose: 125 mls/hr Levothyroxine Sodium (Synthroid Tab*) 88 mcg PO 0600 [facility] Last Admin: 02/16/19 05:19 Dose: 88 mcg Magnesium Hydroxide (Milk Of Magnesia Liq*) 30 ml PO Q6H PRN PRN Reason: CONSTIPATION Last Admin: 02/13/19 16:26 Dose: 30 ml Midodrine (Midodrine) 5 mg PO TID [facility]; Protocol Last Admin: 02/16/19 08:14 Dose: 5 mg Ondansetron HCl (Zofran Inj*) 4 mg IV Q6H PRN PRN Reason: NAUSEA/VOMITING Last Admin: 02/14/19 18:13 Dose: 4 mg Oxycodone HCl (Roxycodone Tab*) 5 mg PO Q6H PRN PRN Reason: PAIN - SEVERE Last Admin: 02/16/19 08:13 Dose: 5 mg Senna (Senokot 8.6 Mg Tab*) 1 tab PO BEDTIME [facility] Last Admin: 02/15/19 20:28 Dose: 1 tab Tramadol HCl (Ultram*) 50 mg PO Q6H PRN PRN Reason: PAIN - MODERATE Last Admin: 02/16/19 05:24 Dose: 50 mg Vital Signs - 8 hr 02/16/19 02/16/19 02/16/19 03:15 05:24 07:24 Temperature 98.1 F Pulse Rate 77 Respiratory 22 18 20 Rate Blood Pressure 85/46 (mmHg) O2 Sat by Pulse 98 Oximetry 02/16/19 02/16/19 07:32 08:13 Temperature 97.8 F Pulse Rate 78 Respiratory 16 20 Rate Blood Pressure 90/52 (mmHg) O2 Sat by Pulse 97 Oximetry Oxygen Devices in Use Now: None Appearance: Elderly female sitting up in bed, eating breakfast, NAD Eyes: No Scleral Icterus Ears/Nose/Mouth/Throat: Mucous Membranes Moist Respiratory: Symmetrical Chest Expansion and Respiratory Effort, Clear to Auscultation - anteriorly Cardiovascular: NL Sounds; No Murmurs; No JVD, - - irregularly irregular (on tele NSR with frequent PACs), controlled rate; trace LE edema bilaterally Abdominal: NL Sounds; No Tenderness; No Distention Extremities: - - R arm in sling Skin: No Nodules or Sclerosis Neurological: - - mildly confused Result Diagrams: 02/16/19 06:54 02/13/19 06:18 Microbiology and Other Data: Microbiology 02/12/19 05:05 Aerobic Blood Culture - Preliminary Blood Venous No Growth Day 1 Anaerobic Blood Culture - Preliminary No Growth Day 1 02/12/19 05:02 Aerobic Blood Culture - Preliminary Blood Venous No Growth Day 1 Anaerobic Blood Culture - Preliminary No Growth Day 1 Assess/Plan/Problems-Billing Ms Sarmiento is a 78 year old female with a past medical history of hypothyroidism who was admitted 02/11/19 s/p fall with right humerus fracture. - Patient Problems (1) Fall Current Visit: Yes Status: Acute Comment: Unclear if pt had syncopal episode , became dizzy and fell or had just a mechanical fall. She underwent echo that revealed a relatively normal echo. No carotid stenosis. On tele, she is in NSR but with frequent PACs. COntinue to monitor on tele for more significant arrhythmias but otherwise no further work up for the fall. (2) UTI (urinary tract infection) Current Visit: Yes Status: Acute Comment: Pt with E coli UTI. She has been on ceftriaxone x 3 days. Will treat for 7 days but change to keflex 500mg BID to complete the course. (3) Anemia Current Visit: Yes Status: Acute Code(s): D64.9 - ANEMIA, UNSPECIFIED SNOMED Code(s): 802880802 Comment: Pt is newly anemic as of 11/2018. Now worse and without clear signs of bleeding. Stool guaiac not obtained yet. Iron studies are indicative of anemia of chronic disease. CT abd/pelvis done last night now questions lymphoma/ sarcoma involving the R psoas muscle. No evidence of retroperitoneal bleed. She will need biopsy but before ordering will discuss findings with patient's son. I question if her anemia and leukocytosis may be secondary to the findings on CT. (4) Right humeral fracture Current Visit: Yes Status: Acute Code(s): S42.301A - UNSP FRACTURE OF SHAFT OF HUMERUS, RIGHT ARM, INIT SNOMED Code(s): 37682231 Comment: S/P fall at home in her bathroom, likely due to UTI and anemia. Continue sling and pain management for now. May need surgery but needs to be medically optimized first. (5) Hypothyroid Current Visit: Yes Status: Acute Code(s): E03.9 - HYPOTHYROIDISM, UNSPECIFIED SNOMED Code(s): 83582214 Comment: Continue synthroid at current dose. (6) DVT prophylaxis Current Visit: Yes Status: Acute Code(s): Z29.9 - ENCOUNTER FOR PROPHYLACTIC MEASURES, UNSPECIFIED SNOMED Code(s): 496058970 Comment: SCDs (7) Full code status Current Visit: Yes Status: Acute Code(s): Z78.9 - OTHER SPECIFIED HEALTH STATUS SNOMED Code(s): 142274058 Status and Disposition: .
[2019-02-16] MEDS: Iron Sucrose* 200 MG in NS 0.9% 100 ML* 100 ML IVPB SCH (09:15)
[2019-02-16] MEDS: Cephalexin CAP* 500 MG PO SCH ×2 (10:44→20:11)
--- NOTE | 2019-02-16 12:26 | PN ---
Progress Note - Progress Note Date of Service: 02/16/19 Note: Patient resting comfortably in stretcher with son by her side. She is alert and denies pain. She denies CP, SOB, or calf pain. She has kept the sling mostly intact and is allowing the arm to hang to gravity. She denies N/T in the RUE. She has AROM in all planes in the right elbow, wrist and hand. Sensation intact to light touch with 2+ radial pulse and brisk cap refill. I have ordered a repeat x-ray to assess fracture for reduction with gravity. Awaiting medical optimization for potential surgery.
[2019-02-16] MEDS: Magnesium Hydroxide LIQ* 30 ML UDC PO PRN (20:08)
[2019-02-16] MEDS: Senna TAB 8.6 mg* TAB PO SCH (20:12)
[2019-02-17] MEDS: oxyCODONE TAB* 5 MG TAB PO PRN ×3 (04:58→22:09)
[2019-02-17] MEDS: Levothyroxine TAB* 88 MCG TAB PO SCH (05:33)
[2019-02-17 05:35] LABS: Hematocrit 28 % (35-47); Hemoglobin 8.9 g/dL (12.0-16.0); Mean Corpuscular HGB Conc 32 g/dL (31-36); Mean Corpuscular Hemoglobin 26 pg (27-31); Mean Corpuscular Volume 80 fL (80-97); Mean Platelet Volume 7.2 fL (7.4-10.4); Platelet Count 299 10^3/uL (150-450); Red Blood Count 3.45 10^6 /uL (3.70-4.87); Red Cell Distribution Width 19 % (10-15); White Blood Count 14.5 10^3/uL (3.5-10.8)
[2019-02-17 05:49] LABS: BUN/Creatinine Ratio 31.5 (8-20); Calcium 8.4 mg/dL (8.6-10.3); EGFR African American 93.3 (>60); EGFR Non-African American 77.1 (>60); Potassium 4.2 mmol/L (3.5-5.0)
[2019-02-17 06:05] LABS: ABS Basophils 0.1 10^3/ul (0-0.2); ABS Eosinophils 0.1 10^3/ul (0-0.6); ABS Lymphocytes 0.9 10^3/ul (1.0-4.8); ABS Monocytes 1.4 10^3/ul (0-0.8); Lymphocyte % 6.4 %
[2019-02-17] MEDS: Cephalexin CAP* 500 MG PO SCH ×2 (07:58→22:09)
[2019-02-17] MEDS: Acetaminophen TAB* 325 MG PO SCH ×3 (07:58→22:09)
[2019-02-17 09:46] LABS: INR 1.15 (0.82-1.09)
[2019-02-17] MEDS ORDERED: fentaNYL* 50 MCG/ML 2 ML VIAL (100 MCG VIAL) ONE (11:04)
--- NOTE | 2019-02-17 13:01 | PN ---
Progress Note - Progress Note Date of Service: 02/17/19 SOAP: Subjective: []Pt seen at bedside. RUE pain is well controlled at rest, she has been lying in bed without getting up due to aggravation of pain with movement. Denies any numbness, tingling of RUE. Denies CP, SOB, dizziness or nausea. Objective: []Gen: NAD RUE: Skin envelope intact. Sensation intact to light touch throughout RUE, sensation intact over deltoid. f/e at wrist and mtps intact. Radial pulse 2+, capillary refill less than two seconds distally Assessment: []R surgical neck fracture Plan: []NWB RUE Sling Repeat xrays to be done today to eval if any reduction with hanging to gravity. If still significant displacement Dr Mills will bring her to the OR for ORIF tomorrow. Made her NPO at midnight and ordered pre-op labs. Admission Xrays TECHNIQUE: 4 views of the right shoulder were obtained. FINDINGS: There is a displaced fracture of the surgical neck of the humerus. The distal fragment is displaced one shaft diameter medial and anterior relative to the proximal fragment. IMPRESSION: DISPLACED FRACTURE OF THE SURGICAL NECK OF THE HUMERUS. Vital Signs Temp 98.5 F 02/17/19 11:02 Pulse 85 02/17/19 11:02 Resp 12 02/17/19 11:02 BP 92/50 02/17/19 11:02 Pulse Ox 98 02/17/19 11:02 Intake & Output 02/16/19 02/17/19 02/17/19 18:59 06:59 18:59 Intake Total 896 0 Output Total 0 1200 Balance 896 0 -1200 Intake: IV Fluids 656 NS 656 Oral 240 0 Output: Urine 0 1200 Laboratory Last Values WBC 14.5 10^3/uL (3.5-10.8) H 02/17/19 05:25 RBC 3.45 10^6 /uL (3.70-4.87) L 02/17/19 05:25 Hgb 8.9 g/dL (12.0-16.0) L 02/17/19 05:25 Hct 28 % (35-47) L 02/17/19 05:25 MCV 80 fL (80-97) 02/17/19 05:25 MCH 26 pg (27-31) L 02/17/19 05:25 MCHC 32 g/dL (31-36) 02/17/19 05:25 RDW 19 % (10-15) H 02/17/19 05:25 Plt Count 299 10^3/uL (150-450) 02/17/19 05:25 MPV 7.2 fL (7.4-10.4) L 02/17/19 05:25 Neut % (Auto) 82.7 % 02/17/19 05:25 Lymph % (Auto) 6.4 % 02/17/19 05:25 Simpson % (Auto) 9.3 % 02/17/19 05:25 Eos % (Auto) 1.0 % 02/17/19 05:25 Baso % (Auto) 0.6 % 02/17/19 05:25 Absolute Neuts (auto) 12.0 10^3/ul (1.5-7.7) H 02/17/19 05:25 Absolute Lymphs (auto) 0.9 10^3/ul (1.0-4.8) L 02/17/19 05:25 Absolute Monos (auto) 1.4 10^3/ul (0-0.8) H 02/17/19 05:25 Absolute Eos (auto) 0.1 10^3/ul (0-0.6) 02/17/19 05:25 Absolute Basos (auto) 0.1 10^3/ul (0-0.2) 02/17/19 05:25 Absolute Nucleated RBC 0.0 10^3/ul 02/17/19 05:25 Nucleated RBC % 0.0 02/17/19 05:25 INR (Anticoag Therapy) 1.15 (0.82-1.09) H 02/17/19 09:20 Sodium 136 mmol/L (135-145) 02/17/19 05:25 Potassium 4.2 mmol/L (3.5-5.0) 02/17/19 05:25 Chloride 107 mmol/L (101-111) 02/17/19 05:25 Carbon Dioxide 21 mmol/L (22-32) L 02/17/19 05:25 Anion Gap 8 mmol/L (2-11) 02/17/19 05:25 BUN 23 mg/dL (6-24) 02/17/19 05:25 Creatinine 0.73 mg/dL (0.51-0.95) 02/17/19 05:25 Est GFR ( Amer) 93.3 (>60) 02/17/19 05:25 Est GFR (Non-Af Amer) 77.1 (>60) 02/17/19 05:25 BUN/Creatinine Ratio 31.5 (8-20) H 02/17/19 05:25 Glucose 95 mg/dL (70-100) 02/17/19 05:25 Hemoglobin A1c 6.3 % (4.0-5.6) H 02/11/19 17:51 Lactic Acid 1.2 mmol/L (0.5-2.0) 02/11/19 17:51 Uric Acid 5.4 mg/dL (2.3-6.6) 02/16/19 06:46 Calcium 8.4 mg/dL (8.6-10.3) L 02/17/19 05:25 Phosphorus 2.9 mg/dL (2.5-5.0) 02/16/19 06:46 Iron < 20 ug/dL (50-212) L 02/12/19 08:27 TIBC 175 mcg/dL (250-450) L 02/12/19 08:27 % Saturation 11 % (15-55) L 02/12/19 08:27 Unsat Iron Binding < 160 ug/dL 02/12/19 08:27 Transferrin 125 mg/dL (203-362) L 02/12/19 08:27 Ferritin 1397.1 ng/mL (11-307) H 02/12/19 08:27 Total Bilirubin 0.50 mg/dL (0.2-1.0) 02/11/19 17:51 AST 40 U/L (13-39) H 02/11/19 17:51 ALT 36 U/L (7-52) 02/11/19 17:51 Alkaline Phosphatase 79 U/L (34-104) 02/11/19 17:51 Lactate Dehydrogenase 189 U/L (140-271) 02/16/19 06:46 Troponin I 0.01 ng/mL (<0.03) 02/11/19 23:44 B-Natriuretic Peptide 155 pg/mL (<=100) H 02/11/19 17:51 Total Protein 6.0 g/dL (6.4-8.9) L 02/11/19 17:51 Albumin 3.0 g/dL (3.2-5.2) L 02/11/19 17:51 Globulin 3.0 g/dL (2-4) 02/11/19 17:51 Albumin/Globulin Ratio 1.0 (1-3) 02/11/19 17:51 Vitamin B12 515 pg/mL (180-914) 02/12/19 08:27 Folate 12.22 ng/mL (>3.99) 02/12/19 08:27 TSH 2.92 mcIU/mL (0.34-5.60) 02/11/19 17:51 Free T4 1.30 ng/dL (0.61-1.12) H 02/11/19 17:51 Cortisol 17.51 mcg/dL 02/15/19 04:43 Urine Color Avril 02/12/19 19:45 Urine Appearance Cloudy 02/12/19 19:45 Urine pH 5.0 (5-9) 02/12/19 19:45 Ur Specific [place] 1.015 (1.010-1.030) 02/12/19 19:45 Urine Protein Negative (Negative) 02/12/19 19:45 Urine Ketones Negative (Negative) 02/12/19 19:45 Urine Blood 3+ (Negative) A 02/12/19 19:45 Urine Nitrate Negative (Negative) 02/12/19 19:45 Urine Bilirubin Negative (Negative) 02/12/19 19:45 Urine Urobilinogen Negative (Negative) 02/12/19 19:45 Ur Leukocyte Esterase 3+ (Negative) A 02/12/19 19:45 Urine WBC (Auto) 3+(>20/hpf) (Absent) A 02/12/19 19:45 Urine RBC (Auto) 3+(>10/hpf) (Absent) A 02/12/19 19:45 Ur Squamous Epith Cells Present (Absent) A 02/12/19 19:45 Urine Bacteria 1+ (Absent) A 02/12/19 19:45 Urine Glucose Negative (Negative) 02/12/19 19:45 Influenza A (Rapid) Negative (Negative) 02/12/19 07:04 Influenza B (Rapid) Negative (Negative) 02/12/19 07:04 Blood Type O Positive 02/12/19 04:58 Antibody Screen Negative 02/12/19 04:58 Crossmatch See Detail 02/12/19 04:58
[2019-02-17] MEDS: Fludrocortisone Acetate TAB* 0.1 MG PO SCH (14:49)
[2019-02-17] MEDS: Docusate CAP* 100 MG PO PRN ×2 (14:50→22:08)
--- NOTE | 2019-02-17 14:53 | PN ---
Subjective Date of Service: 02/17/19 Interval History: Patient is feeling well today. Patient complains of moderate pain in her arm with movement. Patient denies CP, SOB, diarrhea, dysuria. Patient states she is somewhat dizzy on standing occasionally but has not felt presyncopal recently. Family History: Unchanged from Admission Social History: Unchanged from Admission Past Medical History: Unchanged from Admission Objective Active Medications: Acetaminophen (Tylenol Tab*) 975 mg PO TID [facility] Last Admin: 02/17/19 07:58 Dose: 975 mg Cephalexin HCl (Keflex Cap*) 500 mg PO BID [facility] Stop: 02/19/19 21:01 Last Admin: 02/17/19 07:58 Dose: 500 mg Docusate Sodium (Colace Cap*) 100 mg PO BID PRN PRN Reason: CONSTIPATION Last Admin: 02/13/19 20:59 Dose: 100 mg Fludrocortisone Acetate (Florinef Tab*) 0.1 mg PO DAILY [facility] Levothyroxine Sodium (Synthroid Tab*) 88 mcg PO 0600 [facility] Last Admin: 02/17/19 05:33 Dose: 88 mcg Magnesium Hydroxide (Milk Of Magnesia Liq*) 30 ml PO Q6H PRN PRN Reason: CONSTIPATION Last Admin: 02/16/19 20:08 Dose: 30 ml Ondansetron HCl (Zofran Inj*) 4 mg IV Q6H PRN PRN Reason: NAUSEA/VOMITING Last Admin: 02/14/19 18:13 Dose: 4 mg Oxycodone HCl (Roxycodone Tab*) 5 mg PO Q6H PRN PRN Reason: PAIN - MODERATE Last Admin: 02/17/19 04:58 Dose: 5 mg Senna (Senokot 8.6 Mg Tab*) 1 tab PO BEDTIME [facility] Last Admin: 02/16/19 20:12 Dose: 1 tab Vital Signs - 8 hr 02/17/19 02/17/19 02/17/19 07:00 07:38 08:00 Temperature 97.3 F Pulse Rate 88 Respiratory 16 16 16 Rate Blood Pressure 89/47 (mmHg) O2 Sat by Pulse 98 Oximetry 02/17/19 02/17/19 02/17/19 11:02 11:30 11:40 Temperature 98.5 F Pulse Rate 85 80 82 Respiratory 12 Rate Blood Pressure 92/50 107/63 104/60 (mmHg) O2 Sat by Pulse 98 99 Oximetry 02/17/19 02/17/19 02/17/19 12:05 12:10 14:25 Temperature Pulse Rate 82 85 85 Respiratory Rate Blood Pressure 99/58 100/57 109/64 (mmHg) O2 Sat by Pulse 95 97 Oximetry Oxygen Devices in Use Now: None Appearance: Patient is a 78yo female who appears stated age and is sitting in the bed in NAD. Eyes: No Scleral Icterus, PERRLA Ears/Nose/Mouth/Throat: NL Teeth, Lips, Gums, Clear Oropharnyx, Mucous Membranes Moist Neck: NL Appearance and Movements; NL JVP, Trachea Midline Respiratory: Symmetrical Chest Expansion and Respiratory Effort, Clear to Auscultation Cardiovascular: NL Sounds; No Murmurs; No JVD, RRR, No Edema Abdominal: NL Sounds; No Tenderness; No Distention, No Hepatosplenomegaly Lymphatic: No Cervical Adenopathy Extremities: No Clubbing, Cyanosis, - - RUE in a sling, no obvious deformity. Skin: No Nodules or Sclerosis Neurological: Alert and Oriented x 3, NL Sensation, NL Muscle Strength and Tone , - - CN II-XII intact. Result Diagrams: 02/17/19 05:25 02/17/19 05:25 Microbiology and Other Data: Microbiology 02/12/19 05:05 Aerobic Blood Culture - Preliminary Blood Venous No Growth Day 1 Anaerobic Blood Culture - Preliminary No Growth Day 1 02/12/19 05:02 Aerobic Blood Culture - Preliminary Blood Venous No Growth Day 1 Anaerobic Blood Culture - Preliminary No Growth Day 1 Assess/Plan/Problems-Billing Ms Sarmiento is a 78 year old female with a past medical history of hypothyroidism who was admitted 02/11/19 s/p fall with right humerus fracture and was found to be anemic and to have a retroperitoneal mass. - Patient Problems (1) Retroperitoneal mass Current Visit: Yes Status: Acute Code(s): R19.00 - INTRA-ABD AND PELVIC SWELLING, MASS AND LUMP, UNSP SITE SNOMED Code(s): 70037678 Comment: - Large (12cm in greatest demension) - In Iliopsoas muscle. - CT guided biopsy today without complication - Lymphadenopathy associated - Weight loss, decreased appetite, AOCD worrisome for malignancy, Heme/Onc consult pending pathology. (2) Right humeral fracture Current Visit: Yes Status: Acute Code(s): S42.301A - UNSP FRACTURE OF SHAFT OF HUMERUS, RIGHT ARM, INIT SNOMED Code(s): 02561410 Comment: - S/P fall at home in her bathroom, likely due to orthostatis due to UTI and anemia. - Continue sling and pain management for now. - ORIF tomorrow - Patient's RCRI is 0, indicating a 3.9% chance of MACE at 30 days. Patient has excellent functinonal capactity, generally being capable of >4 METS. Echo unremarkable. EKG non-ischemic. Troponins negative x3. Patient is medically optimized for surgery without further cardiac testing. - Low BP is a chronic finding without obvious cause and does not appears to be related to acute cardiac disease. (3) Anemia Current Visit: Yes Status: Acute Code(s): D64.9 - ANEMIA, UNSPECIFIED SNOMED Code(s): 595875942 Comment: - Patient is newly anemic as of 11/2018. - Now worse and without clear signs of bleeding. - Stool guaiac not obtained yet. - Iron studies are indicative of anemia of chronic disease. - CT abd/pelvis done last night now questions lymphoma/sarcoma involving the R psoas muscle. No evidence of retroperitoneal bleed. - With chronic systemic symptoms, concern for malignancy. - Pending pathology, may benefit from IV iron. (4) Fall Current Visit: Yes Status: Acute Comment: - See above discussion. (5) Hypotension Current Visit: Yes Status: Acute Comment: - Ongoing. - Not symptomatic at rest, but symptomatic with changes in position without overt orthostatic hypotension - Failed Midodrine, Start Florinef - Chronic Finding for years per patient and son. (6) Hypothyroid Current Visit: Yes Status: Acute Code(s): E03.9 - HYPOTHYROIDISM, UNSPECIFIED SNOMED Code(s): 42631630 Comment: - Continue synthroid at current dose. (7) UTI (urinary tract infection) Current Visit: Yes Status: Acute Comment: - Pt with E coli UTI. - She has been on ceftriaxone x 3 days. - Will treat for 7 days but change to keflex 500mg BID to complete the course. (8) DVT prophylaxis Current Visit: Yes Status: Acute Code(s): Z29.9 - ENCOUNTER FOR PROPHYLACTIC MEASURES, UNSPECIFIED SNOMED Code(s): 451529603 Comment: - SCDs in setting of anemia - negative LE dopplers yesterday. (9) Full code status Current Visit: Yes Status: Acute Code(s): Z78.9 - OTHER SPECIFIED HEALTH STATUS SNOMED Code(s): 819731170 Status and Disposition: Inpatient pending evaluation of retroperitoneal mass and humeral fracture fixation.
[2019-02-17] MEDS: Senna TAB 8.6 mg* TAB PO SCH (22:09)
[2019-02-18] MEDS: oxyCODONE TAB* 5 MG TAB PO PRN (03:55)
[2019-02-18] MEDS ORDERED: Morphine INJ* 2 MG/ML 1 ML SYRINGE (TWO MG - NEW SYRINGE VERSION) IV ONE (04:37)
[2019-02-18 04:44] LABS: ABS Basophils 0.1 10^3/ul (0-0.2); ABS Eosinophils 0.1 10^3/ul (0-0.6); ABS Lymphocytes 0.8 10^3/ul (1.0-4.8); ABS Monocytes 1.1 10^3/ul (0-0.8); ABS Neutrophils 10.7 10^3/ul (1.5-7.7); Hematocrit 28 % (35-47); Lymphocyte % 6.2 %; Mean Corpuscular HGB Conc 32 g/dL (31-36); Mean Corpuscular Hemoglobin 26 pg (27-31); Mean Corpuscular Volume 80 fL (80-97); Mean Platelet Volume 7.1 fL (7.4-10.4); Platelet Count 275 10^3/uL (150-450); Red Cell Distribution Width 20 % (10-15); White Blood Count 12.8 10^3/uL (3.5-10.8)
[2019-02-18 04:49] LABS: INR 1.21 (0.82-1.09)
[2019-02-18 05:02] LABS: BUN/Creatinine Ratio 30.6 (8-20); EGFR African American 112.6 (>60); EGFR Non-African American 93.1 (>60); Magnesium 1.8 mg/dL (1.9-2.7); Potassium 4.1 mmol/L (3.5-5.0)
[2019-02-18] MEDS: Levothyroxine TAB* 88 MCG TAB PO SCH (05:28)
[2019-02-18] MEDS ORDERED: Magnesium Sulfate 1 GM IV* 1 GM/100 ML BAG IV ONE (07:03)
[2019-02-18] MEDS: Acetaminophen TAB* 325 MG PO SCH ×3 (11:13→20:32)
[2019-02-18] MEDS: Cephalexin CAP* 500 MG PO SCH ×2 (11:49→20:34)
[2019-02-18] MEDS: Fludrocortisone Acetate TAB* 0.1 MG PO SCH (11:49)
--- NOTE | 2019-02-18 13:26 | PN ---
Subjective Date of Service: 02/18/19 Interval History: Patient is feeling well today. Stable pain in right shoulder. No Numbness distally. Patient has slight dizziness when turning head from side to side. Patient denies F/C, N/V, abdominal pain, diarrhea, dysuria, or other pain. Family History: Unchanged from Admission Social History: Unchanged from Admission Past Medical History: Unchanged from Admission Objective Active Medications: Acetaminophen (Tylenol Tab*) 975 mg PO TID [facility] Last Admin: 02/18/19 11:13 Dose: 975 mg Cephalexin HCl (Keflex Cap*) 500 mg PO BID [facility] Stop: 02/19/19 21:01 Last Admin: 02/18/19 11:49 Dose: Not Given Docusate Sodium (Colace Cap*) 100 mg PO BID PRN PRN Reason: CONSTIPATION Last Admin: 02/17/19 22:08 Dose: 100 mg Fludrocortisone Acetate (Florinef Tab*) 0.1 mg PO DAILY [facility] Last Admin: 02/18/19 11:49 Dose: Not Given Levothyroxine Sodium (Synthroid Tab*) 88 mcg PO 0600 [facility] Last Admin: 02/18/19 05:28 Dose: 88 mcg Magnesium Hydroxide (Milk Of Magnesia Liq*) 30 ml PO Q6H PRN PRN Reason: CONSTIPATION Last Admin: 02/16/19 20:08 Dose: 30 ml Ondansetron HCl (Zofran Inj*) 4 mg IV Q6H PRN PRN Reason: NAUSEA/VOMITING Last Admin: 02/14/19 18:13 Dose: 4 mg Oxycodone HCl (Roxycodone Tab*) 5 mg PO Q6H PRN PRN Reason: PAIN - MODERATE Last Admin: 02/18/19 03:55 Dose: 5 mg Senna (Senokot 8.6 Mg Tab*) 1 tab PO BEDTIME [facility] Last Admin: 02/17/19 22:09 Dose: 1 tab Vital Signs - 8 hr 02/18/19 02/18/19 02/18/19 05:28 05:29 07:12 Temperature 97.3 F Pulse Rate 82 Respiratory 16 16 16 Rate Blood Pressure 104/57 (mmHg) O2 Sat by Pulse 97 Oximetry 02/18/19 02/18/19 08:16 11:20 Temperature 97.3 F Pulse Rate 96 Respiratory 18 18 Rate Blood Pressure 96/64 (mmHg) O2 Sat by Pulse 99 Oximetry Oxygen Devices in Use Now: None Appearance: Patient is a 78yo female who appears stated age and is sitting in the bed in NAD. Eyes: No Scleral Icterus, PERRLA Ears/Nose/Mouth/Throat: NL Teeth, Lips, Gums, Clear Oropharnyx, Mucous Membranes Moist Neck: NL Appearance and Movements; NL JVP, Trachea Midline Respiratory: Symmetrical Chest Expansion and Respiratory Effort, Clear to Auscultation Cardiovascular: NL Sounds; No Murmurs; No JVD, RRR, - - 1+ B/L LE edema. Abdominal: NL Sounds; No Tenderness; No Distention, No Hepatosplenomegaly Lymphatic: No Cervical Adenopathy Extremities: No Clubbing, Cyanosis, - - RUE In Sling Skin: No Rash or Ulcers, No Nodules or Sclerosis Neurological: Alert and Oriented x 3, NL Sensation, NL Muscle Strength and Tone , - - CN II-XII intact. Somewhat forgetful. Result Diagrams: 02/18/19 04:31 02/18/19 04:31 Microbiology and Other Data: Microbiology 02/12/19 05:05 Aerobic Blood Culture - Preliminary Blood Venous No Growth Day 1 Anaerobic Blood Culture - Preliminary No Growth Day 1 02/12/19 05:02 Aerobic Blood Culture - Preliminary Blood Venous No Growth Day 1 Anaerobic Blood Culture - Preliminary No Growth Day 1 Assess/Plan/Problems-Billing Ms Sarmiento is a 78 year old female with a past medical history of hypothyroidism who was admitted 02/11/19 s/p fall with right humerus fracture and was found to be anemic and to have a retroperitoneal mass. - Patient Problems (1) Retroperitoneal mass Current Visit: Yes Status: Acute Code(s): R19.00 - INTRA-ABD AND PELVIC SWELLING, MASS AND LUMP, UNSP SITE SNOMED Code(s): 15323107 Comment: - Large (12cm in greatest demension) - In Iliopsoas muscle. - CT guided biopsy without complication - Lymphadenopathy associated - Weight loss, decreased appetite, AOCD worrisome for malignancy, Heme/Onc consult pending pathology. - Remote history of TB, Very unlikely cause of above symptoms and findings. (2) Right humeral fracture Current Visit: Yes Status: Acute Code(s): S42.301A - UNSP FRACTURE OF SHAFT OF HUMERUS, RIGHT ARM, INIT SNOMED Code(s): 48203706 Comment: - S/P fall at home in her bathroom, likely due to orthostatis due to UTI and anemia. - Continue sling and pain management for now. - ORIF Today - Patient's RCRI is 0, indicating a 3.9% chance of MACE at 30 days. Patient has excellent functinonal capactity, generally being capable of >4 METS. Echo unremarkable. EKG non-ischemic. Troponins negative x3. Patient is medically optimized for surgery without further cardiac testing. - Low BP is a chronic finding without obvious cause and does not appears to be related to acute cardiac disease. (3) Anemia Current Visit: Yes Status: Acute Code(s): D64.9 - ANEMIA, UNSPECIFIED SNOMED Code(s): 649827668 Comment: - Patient is newly anemic as of 11/2018. - Now worse and without clear signs of bleeding. - Stool guaiac not obtained yet. - Iron studies are indicative of anemia of chronic disease. - CT abd/pelvis done last night now questions lymphoma/sarcoma involving the R psoas muscle. No evidence of retroperitoneal bleed. - With chronic systemic symptoms, concern for malignancy. - Pending pathology, may benefit from IV iron. (4) Fall Current Visit: Yes Status: Acute Comment: - See above discussion. (5) Hypotension Current Visit: Yes Status: Acute Comment: - Ongoing. - Not symptomatic at rest, but symptomatic with changes in position without overt orthostatic hypotension - Failed Midodrine, Start Florinef - Chronic Finding for years per patient and son. (6) Hypothyroid Current Visit: Yes Status: Acute Code(s): E03.9 - HYPOTHYROIDISM, UNSPECIFIED SNOMED Code(s): 87979320 Comment: - Continue synthroid at current dose. (7) UTI (urinary tract infection) Current Visit: Yes Status: Acute Comment: - Pt with E coli UTI. - She has been on ceftriaxone x 3 days. - Will treat for 7 days but change to keflex 500mg BID to complete the course. ( Ends 02/19) (8) DVT prophylaxis Current Visit: Yes Status: Acute Code(s): Z29.9 - ENCOUNTER FOR PROPHYLACTIC MEASURES, UNSPECIFIED SNOMED Code(s): 998307385 Comment: - SCDs in setting of anemia - negative LE dopplers (9) Full code status Current Visit: Yes Status: Acute Code(s): Z78.9 - OTHER SPECIFIED HEALTH STATUS SNOMED Code(s): 146799421 Status and Disposition: Inpatient pending evaluation of retroperitoneal mass and humeral fracture fixation.
[2019-02-18] MEDS ORDERED: ceFAZolin 2 GM in NS PREMIX(*) 2 GM/100 ML BAG IVPB ONE (13:27)
[2019-02-18] MEDS ORDERED: Midazolam* 1 MG/ML 2 ML VIAL (2 MG) ONE (13:29)
[2019-02-18] MEDS ORDERED: fentaNYL* 50 MCG/ML 2 ML VIAL (100 MCG VIAL) ONE (13:29)
[2019-02-18] MEDS ORDERED: Lidocaine 2% PF * 5 ML VIAL ONE ×2 (13:32→14:09)
[2019-02-18] MEDS ORDERED: Dexamethasone IV* 4 MG/ML 1 ML (4 MG) ONE (14:09)
[2019-02-18] MEDS ORDERED: Propofol* 10 MG/ML 20 ML BTL ONE (14:09)
[2019-02-18] MEDS ORDERED: Ondansetron INJ* 2 MG/ML VIAL ONE (14:09)
[2019-02-18] MEDS: Senna TAB 8.6 mg* TAB PO SCH (20:33)
--- NOTE | 2019-02-18 23:56 | OP ---
DATE OF OPERATION: 02/18/19 - [facility] DATE OF : 40 SURGEON: Trista Mills MD STOCK WORKER: MAHIN Haskins ANESTHESIA: General plus block. PRE-OP DIAGNOSIS: Right proximal humerus fracture. POST-OP DIAGNOSIS: Right proximal humerus fracture. OPERATIVE PROCEDURE: Open reduction and internal fixation of the right proximal humerus. ESTIMATED BLOOD LOSS: 20 mL. INDICATION FOR PROCEDURE: Jo is a 78-year-old woman who fell and injured her right shoulder. She has a completely displaced proximal humerus fracture. She presents for ORIF. DESCRIPTION OF PROCEDURE: The patient was brought to the operating room, was given a general anesthetic after a block in the preop holding area. The skin of her right upper extremity was prepped and draped in the usual sterile fashion. The anterior aspect of the shoulder was approached with a diagonal incision across the shoulder over the deltopectoral interval. We dissected bluntly down to the cephalic vein which was retracted laterally with the deltoid muscle. At the deltopectoral interval, the proximal humerus shaft was visible and with traction manipulation, we were able to reduce it underneath the humeral head. An x-ray was obtained to show that the reduction was near anatomic. We then secured a Synthes proximal humerus plate with five proximal and four distal screws. The position of the hardware and fracture fragments was checked on the C-arm in the AP and lateral views and found to be satisfactory. The wound was copiously irrigated with saline. A Hemovac drain was placed. The deltopectoral interval was loosely closed with 0 Vicryl and then the subcutaneous tissue closed with 3-0 Vicryl. The skin was closed with skin jarad and the wound was dressed with Xeroform, 4x4, Webril, and ABD. The patient was placed in a sling. The patient tolerated the procedure well and was awakened from general anesthesia and brought to the recovery room in good condition. [id number]/[facility] #: [id number] [facility]
[2019-02-19] MEDS: Levothyroxine TAB* 88 MCG TAB PO SCH (05:14)
[2019-02-19 08:12] LABS: ABS Lymphocytes 1.6 10^3/ul (1.0-4.8); ABS Monocytes 0.8 10^3/ul (0-0.8); ABS Neutrophils 12.9 10^3/ul (1.5-7.7); Hematocrit 29 % (35-47); Hemoglobin 9.2 g/dL (12.0-16.0); Lymphocyte % 10.3 %; Mean Corpuscular HGB Conc 32 g/dL (31-36); Mean Corpuscular Hemoglobin 26 pg (27-31); Mean Corpuscular Volume 80 fL (80-97); Mean Platelet Volume 7.6 fL (7.4-10.4); Platelet Count 336 10^3/uL (150-450); Red Blood Count 3.56 10^6 /uL (3.70-4.87); Red Cell Distribution Width 21 % (10-15); White Blood Count 15.2 10^3/uL (3.5-10.8)
[2019-02-19] MEDS: Cephalexin CAP* 500 MG PO SCH ×2 (08:38→21:14)
[2019-02-19] MEDS: Fludrocortisone Acetate TAB* 0.1 MG PO SCH (08:38)
[2019-02-19] MEDS: Acetaminophen TAB* 325 MG PO SCH ×3 (08:38→21:15)
[2019-02-19 08:53] LABS: BUN/Creatinine Ratio 25.3 (8-20); Calcium 8.2 mg/dL (8.6-10.3); EGFR African American 90.4 (>60); EGFR Non-African American 74.7 (>60); Magnesium 2.1 mg/dL (1.9-2.7); Potassium 4.5 mmol/L (3.5-5.0)
--- NOTE | 2019-02-19 11:39 | PN ---
Progress Note - Progress Note Date of Service: 02/19/19 SOAP: Subjective: Pt is doing well. Pain controlled. Some confusion. Denies F/C, CP/SOB, N/T or calf pain Objective: PE- 78 y/o WDWN F NAD RUE- dressing c/d/i, drain removed with tip intact, edema and bruising of upper arm. +F/E wrist, +2 Dp pulse, SILT distally Vital Signs Temp Pulse Resp BP Pulse Ox 97.2 F 87 16 96/54 95 02/19/19 07:32 02/19/19 07:32 02/19/19 08:00 02/19/19 07:32 02/19/19 07:32 Laboratory Results - last 24 hr 02/17/19 02/19/19 02/19/19 12:55 07:13 07:48 WBC 15.2 H RBC 3.56 L Hgb 9.2 L Hct 29 L MCV 80 MCH 26 L MCHC 32 RDW 21 H Plt Count 336 MPV 7.6 Neut % (Auto) 84.6 Lymph % (Auto) 10.3 [place] % (Auto) 5.0 Eos % (Auto) 0.0 Baso % (Auto) 0.1 Absolute Neuts (auto) 12.9 H Absolute Lymphs (auto) 1.6 Absolute Monos (auto) 0.8 Absolute Eos (auto) 0.0 Absolute Basos (auto) 0.0 Absolute Nucleated RBC 0.0 Nucleated RBC % 0.0 Sodium 136 Potassium 4.5 Chloride 105 Carbon Dioxide 22 Anion Gap 9 BUN 19 Creatinine 0.75 Est GFR ( Amer) 90.4 Est GFR (Non-Af Amer) 74.7 BUN/Creatinine Ratio 25.3 H Glucose 154 H Calcium 8.2 L Magnesium 2.1 Flow Intrp 2-8 Markers TNP Flow Intrp 9-15 Marker Flow Intrp 16+ Markers TNP Assessment: POD 1 S/P Right proximal humerus ORIF Plan: NWB RUE Remain in sling with no motion of the shoulder Cont pain control as needed Drain removed today, tip intact Will likely need ANITA Will f/u with Dr. Mills 10-14 days post op
--- NOTE | 2019-02-19 12:56 | PN ---
Subjective Date of Service: 02/19/19 Interval History: No acute events overnight. Afebrile. Continues hypotension, symptomatic since about 6 months with falls. Right psoas mass biopsy has returned consistent with diffuse large B-Cell Lymphoma BM+ arm pain with movement - too forgetful to understand not to move it? drain removed. Family History: Unchanged from Admission Social History: Unchanged from Admission Past Medical History: Unchanged from Admission Objective Active Medications: Acetaminophen (Tylenol Tab*) 975 mg PO TID [facility] Last Admin: 02/19/19 08:38 Dose: 975 mg Cephalexin HCl (Keflex Cap*) 500 mg PO BID [facility] Stop: 02/19/19 21:01 Last Admin: 02/19/19 08:38 Dose: 500 mg Docusate Sodium (Colace Cap*) 100 mg PO BID PRN PRN Reason: CONSTIPATION Last Admin: 02/17/19 22:08 Dose: 100 mg Fludrocortisone Acetate (Florinef Tab*) 0.1 mg PO DAILY [facility] Last Admin: 02/19/19 08:38 Dose: 0.1 mg Levothyroxine Sodium (Synthroid Tab*) 88 mcg PO 0600 [facility] Last Admin: 02/19/19 05:14 Dose: 88 mcg Magnesium Hydroxide (Milk Of Magnesia Liq*) 30 ml PO Q6H PRN PRN Reason: CONSTIPATION Last Admin: 02/16/19 20:08 Dose: 30 ml Ondansetron HCl (Zofran Inj*) 4 mg IV Q6H PRN PRN Reason: NAUSEA/VOMITING Last Admin: 02/14/19 18:13 Dose: 4 mg Oxycodone HCl (Roxycodone Tab*) 5 mg PO Q6H PRN PRN Reason: PAIN - MODERATE Last Admin: 02/18/19 03:55 Dose: 5 mg Senna (Senokot 8.6 Mg Tab*) 1 tab PO BEDTIME [facility] Last Admin: 02/18/19 20:33 Dose: Not Given Vital Signs - 8 hr 02/19/19 02/19/19 02/19/19 07:32 08:00 11:15 Temperature 97.2 F 98.9 F Pulse Rate 87 99 Respiratory 16 16 20 Rate Blood Pressure 96/54 88/57 (mmHg) O2 Sat by Pulse 95 96 Oximetry Oxygen Devices in Use Now: None Appearance: NAD Eyes: No Scleral Icterus Neck: NL Appearance and Movements; NL JVP Respiratory: Symmetrical Chest Expansion and Respiratory Effort, Clear to Auscultation Cardiovascular: NL Sounds; No Murmurs; No JVD, RRR Extremities: - - 1+ edema b/l Skin: No Rash or Ulcers Neurological: - - oriented to sitution. follows commands. very forgetful Result Diagrams: 02/19/19 07:48 02/19/19 07:13 Additional Lab and Data: Laboratory Results - last 24 hr 02/17/19 02/19/19 02/19/19 12:55 07:13 07:48 WBC 15.2 H RBC 3.56 L Hgb 9.2 L Hct 29 L MCV 80 MCH 26 L MCHC 32 RDW 21 H Plt Count 336 MPV 7.6 Neut % (Auto) 84.6 Lymph % (Auto) 10.3 [place] % (Auto) 5.0 Eos % (Auto) 0.0 Baso % (Auto) 0.1 Absolute Neuts (auto) 12.9 H Absolute Lymphs (auto) 1.6 Absolute Monos (auto) 0.8 Absolute Eos (auto) 0.0 Absolute Basos (auto) 0.0 Absolute Nucleated RBC 0.0 Nucleated RBC % 0.0 Sodium 136 Potassium 4.5 Chloride 105 Carbon Dioxide 22 Anion Gap 9 BUN 19 Creatinine 0.75 Est GFR ( Amer) 90.4 Est GFR (Non-Af Amer) 74.7 BUN/Creatinine Ratio 25.3 H Glucose 154 H Calcium 8.2 L Magnesium 2.1 Flow Intrp 2-8 Markers TNP Flow Intrp 9-15 Marker Flow Intrp 16+ Markers TNP Microbiology and Other Data: Microbiology 02/19/19 12:26 Stool Stool Occult Blood (MICKEY) - Final 02/12/19 05:02 Blood Venous Aerobic Blood Culture - Final No Growth Day 5 02/12/19 05:02 Blood Venous Anaerobic Blood Culture - Final No Growth Day 5 02/12/19 05:05 Blood Venous Aerobic Blood Culture - Final No Growth Day 5 02/12/19 05:05 Blood Venous Anaerobic Blood Culture - Final No Growth Day 5 02/12/19 19:45 Urine Urine Culture - Final Escherichia Coli Assess/Plan/Problems-Billing Ms Sarmiento is a 78 year old female with a past medical history of hypothyroidism who was admitted 02/11/19 s/p fall with right humerus fracture and was found to be anemic and to have a retroperitoneal mass with biopsy results consistent with diffuse large B-cell lymphoma. - Patient Problems (1) Diffuse large B cell lymphoma Current Visit: Yes Status: Acute Code(s): C83.30 - DIFFUSE LARGE B-CELL LYMPHOMA, UNSPECIFIED SITE SNOMED Code(s): 756689145 Comment: Dr. Rai of oncology will see. Discussed biopsy results with son (he prefers to inform patient himself which likely will require repeated reinforcement given her dementia (might consider MRI brain to rule out RIVET DRIVER lymphoma involvement but will defer to Dr. Rai), he says she likely would not want to pursue chemotherapy based on past discussions Will get a palliative care consult as well given above prior preference. (2) Anemia Current Visit: Yes Status: Acute Code(s): D64.9 - ANEMIA, UNSPECIFIED SNOMED Code(s): 864029024 Comment: - Patient is newly anemic as of 11/2018. - CT abd/pelvis 02/15 with R psoas mass now biopsied and consistent with diffuse large B-Cell Lymphoma. - Hgb 9s - Stool guaiac is negative. - Iron studies are indicative of anemia of chronic disease. (3) Hypotension Current Visit: Yes Status: Acute Comment: - Ongoing. - Not symptomatic at rest, but symptomatic with changes in position - had a brief low dose trial of Midodrine, will reinstitute at 10mg TID. Continue Florinef 0.1mg - Chronic Finding for years per patient and son. (4) Fall Current Visit: Yes Status: Acute Comment: - See above discussion. (5) Hypothyroid Current Visit: Yes Status: Acute Code(s): E03.9 - HYPOTHYROIDISM, UNSPECIFIED SNOMED Code(s): 75770424 Comment: - Continue synthroid at current dose. (6) Retroperitoneal mass Current Visit: Yes Status: Acute Code(s): R19.00 - INTRA-ABD AND PELVIC SWELLING, MASS AND LUMP, UNSP SITE SNOMED Code(s): 96684515 Comment: - Large (12cm in greatest demension) - In Iliopsoas muscle. - CT guided biopsy without complication - > diffuse large b-cell lymphoma on pathology - Lymphadenopathy associated - Weight loss, decreased appetite, AOCD worrisome for malignancy, Heme/Onc consult pending pathology. - Remote history of TB, Very unlikely cause of above symptoms and findings. (7) Right humeral fracture Current Visit: Yes Status: Acute Code(s): S42.301A - UNSP FRACTURE OF SHAFT OF HUMERUS, RIGHT ARM, INIT SNOMED Code(s): 32020246 Comment: - S/P fall at home in her bathroom, likely due to orthostatis due to UTI and anemia. - POD #1 ORIF(02/18) - f/u with Dr. Mills as outpatient in 10-14 days - NWB RUE, maintain sling - PT and OT reordered. (8) UTI (urinary tract infection) Current Visit: Yes Status: Acute Comment: - E coli UTI. - She has been on ceftriaxone x 3 days and now this 4th more days of keflex 500mg BID . 08/22 total. (9) DVT prophylaxis Current Visit: Yes Status: Acute Code(s): Z29.9 - ENCOUNTER FOR PROPHYLACTIC MEASURES, UNSPECIFIED SNOMED Code(s): 000666006 Comment: - SCDs in setting of anemia - negative LE dopplers (10) Full code status Current Visit: Yes Status: Acute Code(s): Z78.9 - OTHER SPECIFIED HEALTH STATUS SNOMED Code(s): 373408371 Comment: palliative care was also consulted. DNR may be more in line with sons stated wishes. Status and Disposition: Inpatient, would need rehab.
[2019-02-19] MEDS: oxyCODONE TAB* 5 MG TAB PO PRN (14:39)
[2019-02-19] MEDS: Senna TAB 8.6 mg* TAB PO SCH (21:15)
[2019-02-20] MEDS: oxyCODONE TAB* 5 MG TAB PO PRN (05:45)
[2019-02-20] MEDS: Levothyroxine TAB* 88 MCG TAB PO SCH (05:45)
[2019-02-20 07:01] LABS: ABS Lymphocytes 0.9 10^3/ul (1.0-4.8); ABS Monocytes 1.4 10^3/ul (0-0.8); ABS Neutrophils 14.1 10^3/ul (1.5-7.7); Eosinophil % 0.2 %; Hematocrit 24 % (35-47); Hemoglobin 7.9 g/dL (12.0-16.0); Lymphocyte % 5.4 %; Mean Corpuscular HGB Conc 33 g/dL (31-36); Mean Corpuscular Hemoglobin 26 pg (27-31); Mean Corpuscular Volume 79 fL (80-97); Mean Platelet Volume 7.3 fL (7.4-10.4); Platelet Count 322 10^3/uL (150-450); Red Blood Count 3.05 10^6 /uL (3.70-4.87); Red Cell Distribution Width 20 % (10-15); White Blood Count 16.4 10^3/uL (3.5-10.8)
[2019-02-20] MEDS: Acetaminophen TAB* 325 MG PO SCH ×3 (08:17→20:58)
[2019-02-20] MEDS: Fludrocortisone Acetate TAB* 0.1 MG PO SCH (08:18)
--- NOTE | 2019-02-20 10:43 | PN ---
Progress Note - Progress Note Date of Service: 02/20/19 SOAP: Subjective: Pt is doing well. Pain improved with repositioning of sling. Denies F/C, CP/SOB N/T or calf pain Objective: PE- 78 y/o WDWN F NAD RUE-dressing c/d/i, in sling, diffuse upper extremity edema and ecchymosis slowly improving. able to F/E wrist, +2 radial pulse, SILT distally Vital Signs Temp Pulse Resp BP Pulse Ox 96.9 F 80 16 89/53 97 02/20/19 03:15 02/20/19 03:15 02/20/19 08:13 02/20/19 03:15 02/20/19 03:15 Laboratory Results - last 24 hr 02/20/19 06:41 WBC 16.4 H RBC 3.05 L Hgb 7.9 L Hct 24 L MCV 79 L MCH 26 L MCHC 33 RDW 20 H Plt Count 322 MPV 7.3 L Neut % (Auto) 85.6 Lymph % (Auto) 5.4 [place] % (Auto) 8.6 Eos % (Auto) 0.2 Baso % (Auto) 0.2 Absolute Neuts (auto) 14.1 H Absolute Lymphs (auto) 0.9 L Absolute Monos (auto) 1.4 H Absolute Eos (auto) 0.0 Absolute Basos (auto) 0.0 Absolute Nucleated RBC 0.0 Nucleated RBC % 0.0 Assessment: POD 2 S/P Right proximal humerus ORIF Plan: NWB RUE Remain in sling with no motion of the shoulder Cont pain control as needed Dressing change by ortho tomorrow Will likely need ANITA Will f/u with Dr. Mills 10-14 days post op
--- NOTE | 2019-02-20 12:57 | PN ---
Subjective Date of Service: 02/20/19 Interval History: No acute events. Afebrile. Still dizzy getting up to chair. Right leg continues to feel weak. Was found with severe pain and her arm was out of sling this AM. Continues to be forgetful. Poor po intake. Family History: Unchanged from Admission Social History: Unchanged from Admission Past Medical History: Unchanged from Admission Objective Active Medications: Acetaminophen (Tylenol Tab*) 975 mg PO TID [facility] Last Admin: 02/20/19 08:17 Dose: 975 mg Docusate Sodium (Colace Cap*) 100 mg PO BID PRN PRN Reason: CONSTIPATION Last Admin: 02/17/19 22:08 Dose: 100 mg Fludrocortisone Acetate (Florinef Tab*) 0.2 mg PO DAILY [facility] Levothyroxine Sodium (Synthroid Tab*) 88 mcg PO 0600 [facility] Last Admin: 02/20/19 05:45 Dose: 88 mcg Magnesium Hydroxide (Milk Of Magnesia Liq*) 30 ml PO Q6H PRN PRN Reason: CONSTIPATION Last Admin: 02/16/19 20:08 Dose: 30 ml Midodrine (Midodrine) 15 mg PO TID [facility]; Protocol Ondansetron HCl (Zofran Inj*) 4 mg IV Q6H PRN PRN Reason: NAUSEA/VOMITING Last Admin: 02/14/19 18:13 Dose: 4 mg Oxycodone HCl (Roxycodone Tab*) 5 mg PO Q6H PRN PRN Reason: PAIN - MODERATE Last Admin: 02/20/19 05:45 Dose: 5 mg Senna (Senokot 8.6 Mg Tab*) 1 tab PO BEDTIME [facility] Last Admin: 02/19/19 21:15 Dose: 1 tab Vital Signs - 8 hr 02/20/19 02/20/19 05:45 08:13 Respiratory 16 16 Rate Oxygen Devices in Use Now: None Appearance: NAD, sitting in chair. Neck: NL Appearance and Movements; NL JVP, Trachea Midline Respiratory: Symmetrical Chest Expansion and Respiratory Effort, Clear to Auscultation Cardiovascular: NL Sounds; No Murmurs; No JVD Abdominal: NL Sounds; No Tenderness; No Distention Extremities: - - 2+ pedal edema. right arm in sling Neurological: - - forgetful but seems aware of situation. CN intact. right hip flexion 4-/5. sensation intact. cupola liner 5/5 b/l Nutrition: Taking PO's Result Diagrams: 02/20/19 06:41 02/19/19 07:13 Additional Lab and Data: Laboratory Results - last 24 hr 02/20/19 06:41 WBC 16.4 H RBC 3.05 L Hgb 7.9 L Hct 24 L MCV 79 L MCH 26 L MCHC 33 RDW 20 H Plt Count 322 MPV 7.3 L Neut % (Auto) 85.6 Lymph % (Auto) 5.4 [place] % (Auto) 8.6 Eos % (Auto) 0.2 Baso % (Auto) 0.2 Absolute Neuts (auto) 14.1 H Absolute Lymphs (auto) 0.9 L Absolute Monos (auto) 1.4 H Absolute Eos (auto) 0.0 Absolute Basos (auto) 0.0 Absolute Nucleated RBC 0.0 Nucleated RBC % 0.0 Microbiology and Other Data: Microbiology 02/19/19 12:26 Stool Stool Occult Blood (MICKEY) - Final 02/12/19 05:02 Blood Venous Aerobic Blood Culture - Final No Growth Day 5 02/12/19 05:02 Blood Venous Anaerobic Blood Culture - Final No Growth Day 5 02/12/19 05:05 Blood Venous Aerobic Blood Culture - Final No Growth Day 5 02/12/19 05:05 Blood Venous Anaerobic Blood Culture - Final No Growth Day 5 02/12/19 19:45 Urine Urine Culture - Final Escherichia Coli Assess/Plan/Problems-Billing Ms Sarmiento is a 78 year old female with a past medical history of hypothyroidism who was admitted 02/11/19 s/p fall with right humerus fracture and was found to be anemic and to have a retroperitoneal mass with biopsy results consistent with diffuse large B-cell lymphoma. Persistently hypotensive. - Patient Problems (1) Diffuse large B cell lymphoma Current Visit: Yes Status: Acute Code(s): C83.30 - DIFFUSE LARGE B-CELL LYMPHOMA, UNSPECIFIED SITE SNOMED Code(s): 505627482 Comment: f/u oncology recs. Discussed biopsy results with son and patient will get MRI brain to rule out DRY BOX OPERATOR lymphoma involvement given continued dizziness, right leg weakness and memory loss. (2) Anemia Current Visit: Yes Status: Acute Code(s): D64.9 - ANEMIA, UNSPECIFIED SNOMED Code(s): 686314294 Comment: - Patient is newly anemic as of 11/2018. - CT abd/pelvis 02/15 with R psoas mass now biopsied and consistent with diffuse large B-Cell Lymphoma. - Hgb 7.9 from 9.2 today - LDH wnl - add retic count. - Stool guaiac is negative. - Iron studies are indicative of anemia of chronic disease. (3) Hypotension Current Visit: Yes Status: Acute Comment: - Ongoing. - Not symptomatic at rest, but symptomatic with changes in position - increase to 15 mg TID from 10mg. Increase Florinef from 0.1 to 0.2 mg (4) Fall Current Visit: Yes Status: Acute Comment: - See above discussion. (5) Hypothyroid Current Visit: Yes Status: Acute Code(s): E03.9 - HYPOTHYROIDISM, UNSPECIFIED SNOMED Code(s): 33932645 Comment: - Continue synthroid at current dose. (6) Retroperitoneal mass Current Visit: Yes Status: Acute Code(s): R19.00 - INTRA-ABD AND PELVIC SWELLING, MASS AND LUMP, UNSP SITE SNOMED Code(s): 28210316 Comment: - Large (12cm in greatest demension) - In Iliopsoas muscle. - CT guided biopsy without complication - > diffuse large b-cell lymphoma on pathology - Lymphadenopathy associated - Weight loss, decreased appetite, AOCD worrisome for malignancy, Heme/Onc consult pending pathology. - Remote history of TB, Very unlikely cause of above symptoms and findings. (7) Right humeral fracture Current Visit: Yes Status: Acute Code(s): S42.301A - UNSP FRACTURE OF SHAFT OF HUMERUS, RIGHT ARM, INIT SNOMED Code(s): 73372413 Comment: - S/P fall at home in her bathroom, likely due to orthostatis due to UTI and anemia. - POD #3 ORIF(02/18) - f/u with Dr. Mills as outpatient in 10-14 days - NWB RUE, maintain sling with no shoulder motion - PT and OT reordered. (8) UTI (urinary tract infection) Current Visit: Yes Status: Acute Comment: - E coli UTI. - s/p ceftriaxone x 3 days and then 4 days of keflex 500mg BID. Completed . (9) DVT prophylaxis Current Visit: Yes Status: Acute Code(s): Z29.9 - ENCOUNTER FOR PROPHYLACTIC MEASURES, UNSPECIFIED SNOMED Code(s): 083819152 Comment: - SCDs in setting of anemia - negative LE dopplers (10) Full code status Current Visit: Yes Status: Acute Code(s): Z78.9 - OTHER SPECIFIED HEALTH STATUS SNOMED Code(s): 895238341 Comment: palliative care was also consulted. DNR may be more in line with sons stated wishes. Status and Disposition: Inpatient, would need rehab.
[2019-02-20] MEDS: Senna TAB 8.6 mg* TAB PO SCH (20:59)
[2019-02-21] MEDS: oxyCODONE TAB* 5 MG TAB PO PRN ×2 (05:22→10:33)
[2019-02-21] MEDS: Levothyroxine TAB* 88 MCG TAB PO SCH (05:22)
[2019-02-21] MEDS: Fludrocortisone Acetate TAB* 0.1 MG PO SCH (07:46)
[2019-02-21] MEDS: Acetaminophen TAB* 325 MG PO SCH ×3 (07:47→22:01)
[2019-02-21] MEDS ORDERED: Gadoteridol* (CONTRAST) 279.3 MG/ML 10 ML IV ONE (12:25)
--- NOTE | 2019-02-21 12:44 | CONS ---
CONSULTATION REPORT: DATE OF CONSULT: 02/21/19 REASON FOR CONSULT: Lymphoma. HISTORY OF PRESENT ILLNESS: A 78-year-old female who has been dealing with progressive dementia over the past 3 years. She started to notice memory loss and has been continuously progressive. She lives in an apartment across the street from her son, who is her primary support. At baseline, she would wake up , read the paper during the day, but would not be particularly active. Her son helps with ADLs. Overall felt quality of life over the last summer and into the early fall was reasonable. In addition to the memory loss, she has had increasing dizziness for at least a year with multiple falls. She has had a low appetite and weight loss, losing 22 pounds over 2 years. Symptoms worsened over the past 2 months. She has increased fatigue, increased dizziness, increased weakness, and decreased appetite. She denies fevers, chills, or night sweats. She has not had noticeable swollen glands or lymphadenopathy. On 02/10/19, she fell. She remembers falling and not being able to get up. Crawled her way to the bed, but then could not get on the bed. Son came home and found her on the floor and put her in bed. She slept 02/10/19 into 02/11/19 and then was noted to have severe right arm pain. This prompted to come into the emergency room. On presentation on 02/11/19, she had CT of the brain that showed age-related atrophy and microvascular changes. She had an x-ray that showed a completely displaced fracture of the right proximal humerus. Laboratory studies on presentation included CBC with a white count of 12.3, left shift, hemoglobin 8.1, MCV 76 and platelets of 340. Chemistries showed a sodium of 134, creatinine of 0.74 normal, AST slightly elevated to 40, otherwise normal LFTs, albumin of 3. She had normal TSH and a free T4 of 1.3, and a normal BNP. After admission, her arm was stabilized temporarily. She had a carotid Doppler that showed normal carotid arteries and she had a CT scan of the chest, abdomen and pelvis on 02/15/19. The CT showed the displaced fracture of the right humerus. There is a small 4-mm pulmonary nodule, no mediastinal or hilar lymphadenopathy. Liver with large cyst 5.2 cm that appears benign. Near the retroperitoneal, there were several enlarged lymph nodes and a large mass. Mass was 12.7 x 5.2 x 5.3 cm adjacent to the psoas muscle, satellite lymph nodes measured up to 3 cm. No clear external iliac or inguinal lymph nodes and spleen is normal in size. It is a noncontrast scan with normal bowel pattern. No clear lytic lesions on bone windows. She had surgical fixation of the right humerus on 02/18/[address] Mills and that went well. She also had a biopsy of the right retroperitoneal mass on 04/07. 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 Histology with discohesive malignant cells, polymorphic nuclear contours. No Ki-67 yet, FISH for C-MYC is pending. Additional studies include an LDH that is 189 within normal limits, B12 of 515, ferritin of 1397 and iron saturation of 11%. During the admission, hemoglobin has trended downward being 7.9 today. Today, her primary complaint is right shoulder pain. It is very severe with any movement. She is probably depressed about her memory loss over the past several years, frustrated with quality of life and unsure if she would want to treat cancer. PAST MEDICAL HISTORY: 1. Memory loss, possible Alzheimer's-type dementia. 2. Hypothyroidism. 3. Chronic low blood pressure. SURGERIES: Fixation of the right shoulder. No prior major surgeries. MEDICATIONS AT HOME: Levothyroxine. ALLERGIES: None. FAMILY HISTORY: Mother had dementia, but at 92. Father had coronary disease. Father had committed suicide 10 years ago. There is history of gallstones in the family. SOCIAL HISTORY: She is x12 years. Son is primary support and lives across the street. Previously very active hiking and spending time in the outdoors. 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 Dependent on ADLs for the son. No smoking. No drinking. REVIEW OF SYSTEMS: As noted in the HPI. Additionally, denies headaches, though has dizziness. Feels like both legs are weak and has had back pain for the past 2 to 3 months. She is constipated with bowel movement every 2 to 3 days. No urinary complaints. No skin rashes or itching. PHYSICAL EXAM: Vital Signs: Temperature 97.1, BP 145/54, heart rate 82, respirations 18, O2 sat 96%. HEENT: She is pale. Oral mucosa moist. No cervical or supraclavicular adenopathy. Nodes: No left axillary lymphadenopathy or inguinal adenopathy, could not assess right axilla. Lungs: Clear to auscultation. Heart: Regular rhythm. S1, S2. No murmurs, rubs or gallops. Abdomen: Nontender, nondistended with good bowel sounds. Extremities : +2 edema bilaterally that appears chronic. Musculoskeletal: She has got 3/ 5 strength in lower extremities bilaterally and the right arm is in a cast. Neurologic: She is forgetful, repeating questions multiple times during the interview. She can give a vague outline of her history, but the son was the primary source of information. Grossly, nonfocal. DIAGNOSTIC STUDIES/LAB DATA: Labs: As noted above. ASSESSMENT AND PLAN: A 78-year-old female who appears to have progressive dementia presents after fall and fracture of right humerus with a large retroperitoneal mass. In retrospect, she has had 2 months of back pain, leg weakness, progressive anorexia and dizziness. We discussed that she has 3 problems. One is the arm fracture, which will heal, the second is her lymphoma and the third is her dementia. I think that the memory loss, fatigue, weight loss over the past 3 years is secondary to dementia and will not improve with treatment of her lymphoma. Her deterioration over the past 2 to 3 months with back pain, further decrease in appetite is from lymphoma. I think the dizziness is multifactorial. She has thought extensively about her quality of life and whether or not she wants to from her dementia slowly or from something else more quickly. She is undecided. We discussed the treatment for her lymphoma would be R-mini CHOP. Risks and side effects were discussed including alopecia, low blood counts , risks of infection and most notably potential progression of her memory loss at least for the near future. Overall, memory aside, I think she mode tolerate reduced intensity therapy reasonably well. She did express that if her quality of life returned to what it had been last summer, then treatment may be worthwhile. 1. Diffuse large B-cell lymphoma. Additional pathologic studies are pending. We will eventually like to have either a PET scan or CT chest, abdomen and pelvis with contrast to stage her. We would not perform bone marrow biopsy because our therapeutic options are limited and there is no practical distinction between stage III and stage IV disease. Positive prognostic indicators are her reduced LDH; negative indicators are her age and functional status. 2. Anemia. Either from inflammatory state or marrow infiltration. We will check ESR. Transfusing for hemoglobin under 8 may improve her dizziness. From a cardiovascular standpoint, she will otherwise tolerates anemia very well. 3. We will give her a short course of a 5-day course of prednisone, as I think it could improve her back pain, and give her time to make further decisions about treatment. 4. Consultation, Dr. Katz from Palliative Care. We had an extensive discussion about in-home hospice and what her final months would be like. I would like them to explore this option more thoroughly before making any decisions about treating the lymphoma. 5. I agree with MRI of the brain to further define her dementia. Lymphoma infiltration of [employer] is unlikely. 6. We will continue to follow during hospitalization. I will [place] back with the son and the patient in another 2 to 3 days. [id number]/[facility] #: [id number] MTDD
--- NOTE | 2019-02-21 14:13 | PN ---
Progress Note - Progress Note Date of Service: 02/21/19 SOAP: Subjective: []Pt seen at bedside. At rest pain of her RUE is well controlled. Denies CP, SOB , dizziness, nausea. Objective: []PE- 78 y/o WDWN F NAD RUE-dressing changed, incision is c/d/i, in sling, able to F/E wrist, +2 radial pulse, SILT distally Assessment: POD 3 S/P Right proximal humerus ORIF Plan: NWB RUE Remain in sling though no restriction of shoulder active or passive ROM Cont pain control as needed Dressing change by ortho daily Will likely need ANITA Will f/u with Dr. Mills 10-14 days post op Vital Signs Temp 98.0 F 02/21/19 13:30 Pulse 72 02/21/19 13:30 Resp 16 02/21/19 13:30 BP 94/50 02/21/19 13:30 Pulse Ox 94 02/21/19 13:30 Intake & Output 02/20/19 02/21/19 02/21/19 18:59 06:59 18:59 Intake Total 180 0 410 Output Total 55 200 175 Balance 125 -200 235 Weight 145 lb Intake: Oral 180 0 410 Output: Urine 55 200 175 Other: # Bowel Movements 2 1 Estimated Stool Amount Small Small Laboratory Last Values WBC 16.4 10^3/uL (3.5-10.8) H 02/20/19 06:41 RBC 3.05 10^6 /uL (3.70-4.87) L 02/20/19 06:41 Hgb 7.9 g/dL (12.0-16.0) L 02/20/19 06:41 Hct 24 % (35-47) L 02/20/19 06:41 MCV 79 fL (80-97) L 02/20/19 06:41 MCH 26 pg (27-31) L 02/20/19 06:41 MCHC 33 g/dL (31-36) 02/20/19 06:41 RDW 20 % (10-15) H 02/20/19 06:41 Plt Count 322 10^3/uL (150-450) 02/20/19 06:41 MPV 7.3 fL (7.4-10.4) L 02/20/19 06:41 Neut % (Auto) 85.6 % 02/20/19 06:41 Lymph % (Auto) 5.4 % 02/20/19 06:41 [place] % (Auto) 8.6 % 02/20/19 06:41 Eos % (Auto) 0.2 % 02/20/19 06:41 Baso % (Auto) 0.2 % 02/20/19 06:41 Absolute Neuts (auto) 14.1 10^3/ul (1.5-7.7) H 02/20/19 06:41 Absolute Lymphs (auto) 0.9 10^3/ul (1.0-4.8) L 02/20/19 06:41 Absolute Monos (auto) 1.4 10^3/ul (0-0.8) H 02/20/19 06:41 Absolute Eos (auto) 0.0 10^3/ul (0-0.6) 02/20/19 06:41 Absolute Basos (auto) 0.0 10^3/ul (0-0.2) 02/20/19 06:41 Absolute Nucleated RBC 0.0 10^3/ul 02/20/19 06:41 Nucleated RBC % 0.0 02/20/19 06:41 ESR 94 mm/Hr (0-29) H 02/21/19 10:33 Hem Pathologist Commnt 02/17/19 05:25 INR (Anticoag Therapy) 1.21 (0.82-1.09) H 02/18/19 04:31 Sodium 136 mmol/L (135-145) 02/19/19 07:13 Potassium 4.5 mmol/L (3.5-5.0) 02/19/19 07:13 Chloride 105 mmol/L (101-111) 02/19/19 07:13 Carbon Dioxide 22 mmol/L (22-32) 02/19/19 07:13 Anion Gap 9 mmol/L (2-11) 02/19/19 07:13 BUN 19 mg/dL (6-24) 02/19/19 07:13 Creatinine 0.75 mg/dL (0.51-0.95) 02/19/19 07:13 Est GFR ( Amer) 90.4 (>60) 02/19/19 07:13 Est GFR (Non-Af Amer) 74.7 (>60) 02/19/19 07:13 BUN/Creatinine Ratio 25.3 (8-20) H 02/19/19 07:13 Glucose 154 mg/dL (70-100) H 02/19/19 07:13 Hemoglobin A1c 6.3 % (4.0-5.6) H 02/11/19 17:51 Lactic Acid 1.2 mmol/L (0.5-2.0) 02/11/19 17:51 Uric Acid 5.4 mg/dL (2.3-6.6) 02/16/19 06:46 Calcium 8.2 mg/dL (8.6-10.3) L 02/19/19 07:13 Phosphorus 2.9 mg/dL (2.5-5.0) 02/16/19 06:46 Magnesium 2.1 mg/dL (1.9-2.7) 02/19/19 07:13 Iron < 20 ug/dL (50-212) L 02/12/19 08:27 TIBC 175 mcg/dL (250-450) L 02/12/19 08:27 % Saturation 11 % (15-55) L 02/12/19 08:27 Unsat Iron Binding < 160 ug/dL 02/12/19 08:27 Transferrin 125 mg/dL (203-362) L 02/12/19 08:27 Ferritin 1397.1 ng/mL (11-307) H 02/12/19 08:27 Total Bilirubin 0.50 mg/dL (0.2-1.0) 02/11/19 17:51 AST 40 U/L (13-39) H 02/11/19 17:51 ALT 36 U/L (7-52) 02/11/19 17:51 Alkaline Phosphatase 79 U/L (34-104) 02/11/19 17:51 Lactate Dehydrogenase 189 U/L (140-271) 02/16/19 06:46 Troponin I 0.01 ng/mL (<0.03) 02/11/19 23:44 B-Natriuretic Peptide 155 pg/mL (<=100) H 02/11/19 17:51 Total Protein 6.0 g/dL (6.4-8.9) L 02/11/19 17:51 Albumin 3.0 g/dL (3.2-5.2) L 02/11/19 17:51 Globulin 3.0 g/dL (2-4) 02/11/19 17:51 Albumin/Globulin Ratio 1.0 (1-3) 02/11/19 17:51 Vitamin B12 515 pg/mL (180-914) 02/12/19 08:27 Folate 12.22 ng/mL (>3.99) 02/12/19 08:27 TSH 2.92 mcIU/mL (0.34-5.60) 02/11/19 17:51 Free T4 1.30 ng/dL (0.61-1.12) H 02/11/19 17:51 Cortisol 17.51 mcg/dL 02/15/19 04:43 Urine Color [place] 02/12/19 19:45 Urine Appearance Cloudy 02/12/19 19:45 Urine pH 5.0 (5-9) 02/12/19 19:45 Ur Specific [place] 1.015 (1.010-1.030) 02/12/19 19:45 Urine Protein Negative (Negative) 02/12/19 19:45 Urine Ketones Negative (Negative) 02/12/19 19:45 Urine Blood 3+ (Negative) A 02/12/19 19:45 Urine Nitrate Negative (Negative) 02/12/19 19:45 Urine Bilirubin Negative (Negative) 02/12/19 19:45 Urine Urobilinogen Negative (Negative) 02/12/19 19:45 Ur Leukocyte Esterase 3+ (Negative) A 02/12/19 19:45 Urine WBC (Auto) 3+(>20/hpf) (Absent) A 02/12/19 19:45 Urine RBC (Auto) 3+(>10/hpf) (Absent) A 02/12/19 19:45 Ur Squamous Epith Cells Present (Absent) A 02/12/19 19:45 Urine Bacteria 1+ (Absent) A 02/12/19 19:45 Urine Glucose Negative (Negative) 02/12/19 19:45 Influenza A (Rapid) Negative (Negative) 02/12/19 07:04 Influenza B (Rapid) Negative (Negative) 02/12/19 07:04 Flow Intrp 2-8 Markers TNP 02/17/19 12:55 Flow Intrp 9-15 Marker 02/17/19 12:55 Flow Intrp 16+ Markers TNP 02/17/19 12:55 Blood Type O Positive 02/18/19 04:31 Antibody Screen Negative 02/18/19 04:31 Crossmatch See Detail 02/12/19 04:58
--- NOTE | 2019-02-21 15:29 | PN ---
Subjective Date of Service: 02/21/19 Interval History: No acute events overnight. Afebrile still very dizzy. BP still low. hgb 7.9 yesterday and son consents for 1u prbc. Met with Dr. Rai, about to meet with Palliative care. Very forgetful still - needs freqent reminders about her cancer diagnosis completed MRI Brain - no e/o CVA or IMMIGRATION JUDGE lymphoma involvement. diffuse involutional change present. Family History: Unchanged from Admission Social History: Unchanged from Admission Past Medical History: Unchanged from Admission Objective Active Medications: Acetaminophen (Tylenol Tab*) 975 mg PO TID [facility] Last Admin: 02/21/19 13:17 Dose: 975 mg Docusate Sodium (Colace Cap*) 100 mg PO BID PRN PRN Reason: CONSTIPATION Last Admin: 02/17/19 22:08 Dose: 100 mg Fludrocortisone Acetate (Florinef Tab*) 0.2 mg PO DAILY [facility] Last Admin: 02/21/19 07:46 Dose: 0.2 mg Levothyroxine Sodium (Synthroid Tab*) 88 mcg PO 0600 [facility] Last Admin: 02/21/19 05:22 Dose: 88 mcg Magnesium Hydroxide (Milk Of Magnesia Liq*) 30 ml PO Q6H PRN PRN Reason: CONSTIPATION Last Admin: 02/16/19 20:08 Dose: 30 ml Midodrine (Midodrine) 15 mg PO TID [facility]; Protocol Last Admin: 02/21/19 13:17 Dose: 15 mg Ondansetron HCl (Zofran Inj*) 4 mg IV Q6H PRN PRN Reason: NAUSEA/VOMITING Last Admin: 02/14/19 18:13 Dose: 4 mg Oxycodone HCl (Roxycodone Tab*) 5 mg PO Q6H PRN PRN Reason: PAIN - MODERATE Last Admin: 02/21/19 10:33 Dose: 5 mg Prednisone (Deltasone 20 Mg Tab) 60 mg PO DAILY [facility] Stop: 02/26/19 10:59 Last Admin: 02/21/19 10:33 Dose: 60 mg Senna (Senokot 8.6 Mg Tab*) 1 tab PO BEDTIME [facility] Last Admin: 02/20/19 20:59 Dose: 1 tab Vital Signs - 8 hr 02/21/19 02/21/19 02/21/19 07:34 08:00 10:33 Temperature Pulse Rate Respiratory 20 16 16 Rate Blood Pressure (mmHg) O2 Sat by Pulse Oximetry 02/21/19 02/21/19 11:15 13:30 Temperature 98.0 F 98.0 F Pulse Rate 79 72 Respiratory 26 16 Rate Blood Pressure 140/55 94/50 (mmHg) O2 Sat by Pulse 97 94 Oximetry Oxygen Devices in Use Now: None Appearance: NAD, sitting in chair. Eyes: No Scleral Icterus Respiratory: Symmetrical Chest Expansion and Respiratory Effort Cardiovascular: NL Sounds; No Murmurs; No JVD, RRR Abdominal: NL Sounds; No Tenderness; No Distention Extremities: No Edema, - - right arm in sling. Skin: No Rash or Ulcers Neurological: - - very forgetful about diagnoses. Better group home memory spontaneously recounting stories of her youth Nutrition: Taking PO's Result Diagrams: 02/20/19 06:41 02/19/19 07:13 Additional Lab and Data: Laboratory Results - last 24 hr 02/21/19 02/21/19 10:33 10:33 ESR 94 H Blood Type O Positive Antibody Screen Negative Crossmatch See Detail Microbiology and Other Data: Microbiology 02/19/19 12:26 Stool Stool Occult Blood (MICKEY) - Final 02/12/19 05:02 Blood Venous Aerobic Blood Culture - Final No Growth Day 5 02/12/19 05:02 Blood Venous Anaerobic Blood Culture - Final No Growth Day 5 02/12/19 05:05 Blood Venous Aerobic Blood Culture - Final No Growth Day 5 02/12/19 05:05 Blood Venous Anaerobic Blood Culture - Final No Growth Day 5 02/12/19 19:45 Urine Urine Culture - Final Escherichia Coli Assess/Plan/Problems-Billing 78 yo female PMH hypothyroidism, progressive dementia who was admitted 02/11/19 s/p fall with right humerus fracture and was found to be anemic and to have a retroperitoneal mass with biopsy results consistent with diffuse large B-cell lymphoma. Persistently hypotensive with dizziness. - Patient Problems (1) Diffuse large B cell lymphoma Current Visit: Yes Status: Acute Code(s): C83.30 - DIFFUSE LARGE B-CELL LYMPHOMA, UNSPECIFIED SITE SNOMED Code(s): 749090322 Comment: appreicate oncology recs. Pt and son still deciding about potential chemotherapy like mini-CHOP. Would need PET vs contrast CT c/a/p to complete staging. No IMMIGRATION JUDGE involvement on MRI Brain w/ contrast. f/u palliatve care discussion. (2) Anemia Current Visit: Yes Status: Acute Code(s): D64.9 - ANEMIA, UNSPECIFIED SNOMED Code(s): 147148143 Comment: - Patient is newly anemic as of 11/2018. - CT abd/pelvis 02/15 with R psoas mass now biopsied and consistent with diffuse large B-Cell Lymphoma. - Hgb 7.9 yesterday from 9.2. Given persistent hypotension and dizziness will transfuse another 1u prbc (got 1u previously) - LDH wnl - get Retic count. - No current plan per heme onc for bone marrow biopsy. - Stool guaiac is negative. - Iron studies were indicative of anemia of chronic disease. She did get 5 doses of venofer earlier this admission. (3) Hypotension Current Visit: Yes Status: Acute Comment: - Ongoing. - Not symptomatic at rest, but symptomatic with changes in position - Continue midodrine 15 mg TID. Continue Florinef 0.2 mg - 1u prbc today. (4) Fall Current Visit: Yes Status: Acute Comment: - See above discussion. (5) Hypothyroid Current Visit: Yes Status: Acute Code(s): E03.9 - HYPOTHYROIDISM, UNSPECIFIED SNOMED Code(s): 26700716 Comment: - Continue synthroid at current dose. (6) Retroperitoneal mass Current Visit: Yes Status: Acute Code(s): R19.00 - INTRA-ABD AND PELVIC SWELLING, MASS AND LUMP, UNSP SITE SNOMED Code(s): 17925498 Comment: - Large (12cm in greatest demension) - In Iliopsoas muscle. - CT guided biopsy without complication - > diffuse large b-cell lymphoma on pathology - Lymphadenopathy associated - Weight loss, decreased appetite, AOCD. - of note has remote history of TB (7) Right humeral fracture Current Visit: Yes Status: Acute Code(s): S42.301A - UNSP FRACTURE OF SHAFT OF HUMERUS, RIGHT ARM, INIT SNOMED Code(s): 85078650 Comment: - S/P fall at home in her bathroom, likely due to orthostatis due to UTI and anemia. - POD #3 ORIF(02/18) - f/u with Dr. Mills as outpatient in 10-14 days - NWB RUE, maintain sling with no shoulder motion - PT and OT reordered. (8) UTI (urinary tract infection) Current Visit: Yes Status: Acute Comment: - E coli UTI. - s/p ceftriaxone x 3 days and then 4 days of keflex 500mg BID. Completed . (9) DVT prophylaxis Current Visit: Yes Status: Acute Code(s): Z29.9 - ENCOUNTER FOR PROPHYLACTIC MEASURES, UNSPECIFIED SNOMED Code(s): 911013586 Comment: - SCDs in setting of anemia - negative LE dopplers (10) Full code status Current Visit: Yes Status: Acute Code(s): Z78.9 - OTHER SPECIFIED HEALTH STATUS SNOMED Code(s): 177225435 Comment: palliative care was also consulted. DNR may be more in line with sons stated wishes. Status and Disposition: Inpatient, would need rehab.
--- NOTE | 2019-02-21 17:10 | CONSULT ---
Palliative / Hospice Consult Ordering Provider: Keith Rai - PCP-rEos Referal Reason: Goals of care/docusate & senna/oxy - Subjective Code Status: Full Code Advance Directives Location: No Advance Directives - History or Present Illness History or Present Illness: 78yo female with mild dementia presents with R shoulder pain s/p fall. PMH is significant for hypothyroidism and recurrent falls last 6 months. PSHx no tob but second hand smoke from her late , no etoh, no drugs, since 2006, 2 adult children Markie and Yasmany, pt lives across [address] from Yasmany. Ktifejr-[id number]-[id number] fx of proximal R humerus, ekg-sinus tach, brain CT- diffuse cerebral and cerebellum volume loss and chronic microvascular ischemic disease otherwise neg, R shoulder-displaced fx neck of humerus, Echo-EF 60-65%, carotid doppler nl, ekg-nsr, venous doppler neg, MRI brain neg, chest/abd/pel CT - 4 mm L upper lobe pulm nodule, sm bilat pleural effusion, retroperitoneal lymphadenopathy and large mass present on R side of paravertebral region, anasarca, displaced humerus, abd CT psoas region biopsy showed diffuse large cell lymphoma, H/H 7.9/24, BUN/Cr 19/.75, egfr 74, Ca 8.2, troponin .01, INR 1.21 and UC E.Coli. Pt admitted with R humeral fx, sepsis protocol secondary to UTI and syncope during work up pt was found to have diffuse large cell lymphoma. No prior admissions. All history is from pt, son and medical record. Lab Values: Abnormal Lab Results 02/21/19 02/21/19 10:33 10:33 ESR 94 H Blood Type O Positive Antibody Screen Negative Crossmatch See Detail Laboratory Last Values WBC 16.4 10^3/uL (3.5-10.8) H 02/20/19 06:41 RBC 3.05 10^6 /uL (3.70-4.87) L 02/20/19 06:41 Hgb 7.9 g/dL (12.0-16.0) L 02/20/19 06:41 Hct 24 % (35-47) L 02/20/19 06:41 MCV 79 fL (80-97) L 02/20/19 06:41 MCH 26 pg (27-31) L 02/20/19 06:41 MCHC 33 g/dL (31-36) 02/20/19 06:41 RDW 20 % (10-15) H 02/20/19 06:41 Plt Count 322 10^3/uL (150-450) 02/20/19 06:41 MPV 7.3 fL (7.4-10.4) L 02/20/19 06:41 Neut % (Auto) 85.6 % 02/20/19 06:41 Lymph % (Auto) 5.4 % 02/20/19 06:41 [place] % (Auto) 8.6 % 02/20/19 06:41 Eos % (Auto) 0.2 % 02/20/19 06:41 Baso % (Auto) 0.2 % 02/20/19 06:41 Absolute Neuts (auto) 14.1 10^3/ul (1.5-7.7) H 02/20/19 06:41 Absolute Lymphs (auto) 0.9 10^3/ul (1.0-4.8) L 02/20/19 06:41 Absolute Monos (auto) 1.4 10^3/ul (0-0.8) H 02/20/19 06:41 Absolute Eos (auto) 0.0 10^3/ul (0-0.6) 02/20/19 06:41 Absolute Basos (auto) 0.0 10^3/ul (0-0.2) 02/20/19 06:41 Absolute Nucleated RBC 0.0 10^3/ul 02/20/19 06:41 Nucleated RBC % 0.0 02/20/19 06:41 ESR 94 mm/Hr (0-29) H 02/21/19 10:33 Hem Pathologist Commnt 02/17/19 05:25 INR (Anticoag Therapy) 1.21 (0.82-1.09) H 02/18/19 04:31 Sodium 136 mmol/L (135-145) 02/19/19 07:13 Potassium 4.5 mmol/L (3.5-5.0) 02/19/19 07:13 Chloride 105 mmol/L (101-111) 02/19/19 07:13 Carbon Dioxide 22 mmol/L (22-32) 02/19/19 07:13 Anion Gap 9 mmol/L (2-11) 02/19/19 07:13 BUN 19 mg/dL (6-24) 02/19/19 07:13 Creatinine 0.75 mg/dL (0.51-0.95) 02/19/19 07:13 Est GFR ( Amer) 90.4 (>60) 02/19/19 07:13 Est GFR (Non-Af Amer) 74.7 (>60) 02/19/19 07:13 BUN/Creatinine Ratio 25.3 (8-20) H 02/19/19 07:13 Glucose 154 mg/dL (70-100) H 02/19/19 07:13 Hemoglobin A1c 6.3 % (4.0-5.6) H 02/11/19 17:51 Lactic Acid 1.2 mmol/L (0.5-2.0) 02/11/19 17:51 Uric Acid 5.4 mg/dL (2.3-6.6) 02/16/19 06:46 Calcium 8.2 mg/dL (8.6-10.3) L 02/19/19 07:13 Phosphorus 2.9 mg/dL (2.5-5.0) 02/16/19 06:46 Magnesium 2.1 mg/dL (1.9-2.7) 02/19/19 07:13 Iron < 20 ug/dL (50-212) L 02/12/19 08:27 TIBC 175 mcg/dL (250-450) L 02/12/19 08:27 % Saturation 11 % (15-55) L 02/12/19 08:27 Unsat Iron Binding < 160 ug/dL 02/12/19 08:27 Transferrin 125 mg/dL (203-362) L 02/12/19 08:27 Ferritin 1397.1 ng/mL (11-307) H 02/12/19 08:27 Total Bilirubin 0.50 mg/dL (0.2-1.0) 02/11/19 17:51 AST 40 U/L (13-39) H 02/11/19 17:51 ALT 36 U/L (7-52) 02/11/19 17:51 Alkaline Phosphatase 79 U/L (34-104) 02/11/19 17:51 Lactate Dehydrogenase 189 U/L (140-271) 02/16/19 06:46 Troponin I 0.01 ng/mL (<0.03) 02/11/19 23:44 B-Natriuretic Peptide 155 pg/mL (<=100) H 02/11/19 17:51 Total Protein 6.0 g/dL (6.4-8.9) L 02/11/19 17:51 Albumin 3.0 g/dL (3.2-5.2) L 02/11/19 17:51 Globulin 3.0 g/dL (2-4) 02/11/19 17:51 Albumin/Globulin Ratio 1.0 (1-3) 02/11/19 17:51 Vitamin B12 515 pg/mL (180-914) 02/12/19 08:27 Folate 12.22 ng/mL (>3.99) 02/12/19 08:27 TSH 2.92 mcIU/mL (0.34-5.60) 02/11/19 17:51 Free T4 1.30 ng/dL (0.61-1.12) H 02/11/19 17:51 Cortisol 17.51 mcg/dL 02/15/19 04:43 Urine Color [place]ril 02/12/19 19:45 Urine Appearance Cloudy 02/12/19 19:45 Urine pH 5.0 (5-9) 02/12/19 19:45 Ur Specific [place] 1.015 (1.010-1.030) 02/12/19 19:45 Urine Protein Negative (Negative) 02/12/19 19:45 Urine Ketones Negative (Negative) 02/12/19 19:45 Urine Blood 3+ (Negative) A 02/12/19 19:45 Urine Nitrate Negative (Negative) 02/12/19 19:45 Urine Bilirubin Negative (Negative) 02/12/19 19:45 Urine Urobilinogen Negative (Negative) 02/12/19 19:45 Ur Leukocyte Esterase 3+ (Negative) A 02/12/19 19:45 Urine WBC (Auto) 3+(>20/hpf) (Absent) A 02/12/19 19:45 Urine RBC (Auto) 3+(>10/hpf) (Absent) A 02/12/19 19:45 Ur Squamous Epith Cells Present (Absent) A 02/12/19 19:45 Urine Bacteria 1+ (Absent) A 02/12/19 19:45 Urine Glucose Negative (Negative) 02/12/19 19:45 Influenza A (Rapid) Negative (Negative) 02/12/19 07:04 Influenza B (Rapid) Negative (Negative) 02/12/19 07:04 Flow Intrp 2-8 Markers TNP 02/17/19 12:55 Flow Intrp 9-15 Marker 02/17/19 12:55 Flow Intrp 16+ Markers TNP 02/17/19 12:55 Blood Type O Positive 02/21/19 10:33 Antibody Screen Negative 02/21/19 10:33 Crossmatch See Detail 02/21/19 10:33 - Objective Active Medications: Acetaminophen (Tylenol Tab*) 975 mg PO TID [facility] Last Admin: 02/21/19 13:17 Dose: 975 mg Docusate Sodium (Colace Cap*) 100 mg PO BID PRN PRN Reason: CONSTIPATION Last Admin: 02/17/19 22:08 Dose: 100 mg Fludrocortisone Acetate (Florinef Tab*) 0.2 mg PO DAILY [facility] Last Admin: 02/21/19 07:46 Dose: 0.2 mg Levothyroxine Sodium (Synthroid Tab*) 88 mcg PO 0600 [facility] Last Admin: 02/21/19 05:22 Dose: 88 mcg Magnesium Hydroxide (Milk Of Magnesia Liq*) 30 ml PO Q6H PRN PRN Reason: CONSTIPATION Last Admin: 02/16/19 20:08 Dose: 30 ml Midodrine (Midodrine) 15 mg PO TID [facility]; Protocol Last Admin: 02/21/19 13:17 Dose: 15 mg Ondansetron HCl (Zofran Inj*) 4 mg IV Q6H PRN PRN Reason: NAUSEA/VOMITING Last Admin: 02/14/19 18:13 Dose: 4 mg Oxycodone HCl (Roxycodone Tab*) 5 mg PO Q6H PRN PRN Reason: PAIN - MODERATE Last Admin: 02/21/19 10:33 Dose: 5 mg Prednisone (Deltasone 20 Mg Tab) 60 mg PO DAILY [facility] Stop: 02/26/19 10:59 Last Admin: 02/21/19 10:33 Dose: 60 mg Senna (Senokot 8.6 Mg Tab*) 1 tab PO BEDTIME [facility] Last Admin: 02/20/19 20:59 Dose: 1 tab Vital Signs: Vital Signs: Temp Pulse Resp BP Pulse Ox 97.9 F 64 16 86/47 95 02/21/19 15:15 02/21/19 15:15 02/21/19 15:15 02/21/19 15:15 02/21/19 15:15 Patient Weight: Weight 65.771 kg Intake and Output: Intake & Output 02/19/19 02/20/19 02/21/19 02/22/19 06:59 06:59 06:59 06:59 Intake Total 1615 240 180 650 Output Total 325 200 255 175 Balance 1290 40 -75 475 Weight 65.771 kg Intake: IV Fluids 1115 LR 1000 NS 15 NS 100ML, Cefazolin 2G 100 IVPB 100 magnesium 100 Oral 400 240 180 650 Output: Urine 325 200 255 175 Other: # Bowel Movements 1 2 1 Estimated Stool Amount Small Small Small ADLs: Meal Record Start: 02/12/19 04: 00 Freq: DAILY@0900,1400,1800 Status: Active Protocol: Created 02/12/19 04:00 System (Rec: 02/12/19 04:00 System TELE-C01) Document 02/12/19 09:00 [id number] (Rec: 02/12/19 09:01 UQK1915 TELE-C01) Document 02/12/19 13:23 BBR3459 (Rec: 02/12/19 13:23 LCU0005 TELE-C01) Document 02/12/19 18:00 BIO5651 (Rec: 02/12/19 22:27 WAF8651 TELE-C07) Document 02/13/19 09:00 KKE9758 (Rec: 02/13/19 09:09 TBL7071 TELE-C01) Document 02/13/19 14:00 YIZ6889 (Rec: 02/13/19 18:07 GHF3654 TELE-C01) Document 02/14/19 09:00 WSR2705 (Rec: 02/14/19 14:40 RGW8842 TELE-C01) Document 02/14/19 14:00 RBY9311 (Rec: 02/14/19 14:45 KNS5807 TELE-C01) Document 02/14/19 18:00 OXI7951 (Rec: 02/14/19 18:18 ZIX5770 TELE-C01) Document 02/15/19 08:51 TKF7177 (Rec: 02/15/19 08:51 EDH1735 TELE-C10) Document 02/15/19 14:00 JGH7126 (Rec: 02/15/19 14:36 IEE8966 TELE-C09) Document 02/15/19 18:00 ZWS3592 (Rec: 02/15/19 18:01 HGS5641 TELE-C07) Document 02/16/19 09:00 HQB2641 (Rec: 02/16/19 12:13 BRF6352 TELE-C01) Document 02/16/19 13:44 DFU8562 (Rec: 02/16/19 13:44 OQC9413 TELE-C01) Document 02/16/19 18:00 RPG8866 (Rec: 02/16/19 18:35 TTB1998 TELE-C01) Document 02/17/19 08:37 NSC2701 (Rec: 02/17/19 08:37 OBT3854 TELE-C10) Document 02/17/19 12:59 VRD5548 (Rec: 02/17/19 12:59 QPG4526 TELE-C10) Document 02/17/19 18:00 ZTB3011 (Rec: 02/17/19 18:14 NQD7765 TELE-C11) Document 02/18/19 09:00 VLL4581 (Rec: 02/18/19 10:17 LZC2633 TELE-C09) Document 02/18/19 13:40 CBF2771 (Rec: 02/18/19 13:42 XMI4644 TELE-C09) Document 02/19/19 09:00 WXY2261 (Rec: 02/19/19 09:57 GQX1546 TELE-C11) Document 02/19/19 14:00 RDC7591 (Rec: 02/19/19 15:37 GVN9032 TELE-C11) Document 02/19/19 18:00 UEP2211 (Rec: 02/19/19 18:25 DWM0453 TELE-C11) Document 02/20/19 09:00 KXD8910 (Rec: 02/20/19 12:00 BZQ4303 TELE-C10) Document 02/20/19 14:00 HFL8540 (Rec: 02/20/19 14:10 RQM4455 TELE-C10) Document 02/21/19 09:00 BVQ3742 (Rec: 01/06/20 10:05 XQC8068 TELE-C10) Document 02/21/19 14:00 KQL9240 (Rec: 02/21/19 14:31 RAN6901 TELE-C10) Intake and Output Start: 02/11/19 16: 50 Freq: Status: Active Protocol: Created 02/11/19 16:50 System (Rec: 02/11/19 16:50 System EDRM-C03) Document 02/18/19 11:49 MYD9080 (Rec: 02/18/19 11:49 LGZ5705 TELE-C09) Document 02/20/19 16:55 AWU2301 (Rec: 02/20/19 16:55 CIO3336 TELE-C11) Intake and Output Start: 02/12/19 04: 00 Freq: DAILY@0600,1400,2200 Status: Active Protocol: Created 02/12/19 04:00 System (Rec: 02/12/19 04:00 System TELE-C01) Document 02/12/19 06:00 WAC6463 (Rec: 02/12/19 06:52 DQN9743 TELE-C13) Document 02/12/19 12:50 JRD0733 (Rec: 02/12/19 12:50 DGE3566 TELE-C06) Document 02/12/19 14:00 XNX0243 (Rec: 02/12/19 14:17 CIZ8490 TELE-C01) Document 02/12/19 22:00 OIG2331 (Rec: 02/13/19 04:04 ECC6721 TELE-C08) Document 02/13/19 06:00 FYF5789 (Rec: 02/13/19 06:56 WKC7451 TELE-C07) Document 02/13/19 14:00 YTF0623 (Rec: 02/13/19 14:06 XNM8674 TELE-C01) Document 02/13/19 22:00 DOU2183 (Rec: 02/13/19 22:24 LKO7056 TELE-C03) Document 02/14/19 05:59 FGF3424 (Rec: 02/14/19 06:00 MAN1703 TELE-C01) Document 02/14/19 13:14 DQS6867 (Rec: 02/14/19 13:14 RAN3592 TELE-M02) Document 02/14/19 22:00 BNP3821 (Rec: 02/14/19 23:44 LXY1730 MED-M27) Document 02/15/19 05:17 UTJ8921 (Rec: 02/15/19 05:17 OTF3166 MED-M27) Document 02/15/19 14:00 QEF7808 (Rec: 02/15/19 14:37 IBV1522 TELE-C09) Document 02/15/19 22:00 GVE9627 (Rec: 02/15/19 22:18 OZB0871 TELE-C01) Document 02/16/19 05:28 VTY3352 (Rec: 02/16/19 05:30 WPU1594 TELE-C11) Document 02/16/19 14:00 BVR7604 (Rec: 02/16/19 14:04 SRM4549 TELE-C07) Document 02/16/19 22:00 AQM2937 (Rec: 02/16/19 22:11 OCG4162 TELE-C09) Document 02/17/19 05:59 AEO4081 (Rec: 02/17/19 06:00 WOU6094 TELE-C09) Document 02/17/19 14:00 GWN0753 (Rec: 02/17/19 14:07 BDT7308 TELE-C10) Document 02/17/19 14:49 GKB4062 (Rec: 02/17/19 14:49 YJB1990 TELE-C10) Document 02/17/19 22:00 DQQ6818 (Rec: 02/17/19 22:15 TRP7081 TELE-C11) Document 02/18/19 05:22 MMZ5409 (Rec: 02/18/19 05:23 LFQ5853 TELE-C07) Document 02/18/19 13:40 CXJ8538 (Rec: 02/18/19 13:42 CQG6244 TELE-C09) Document 02/18/19 22:00 MXL2709 (Rec: 02/18/19 22:47 GQZ5894 TELE-C01) Document 02/19/19 06:00 RXR2932 (Rec: 02/19/19 06:25 EAM0903 TELE-C10) Document 02/19/19 14:00 WSN3245 (Rec: 02/19/19 15:37 RCV7869 TELE-C11) Document 02/19/19 22:00 OGX0438 (Rec: 02/19/19 22:06 KMT4743 TELE-C05) Document 02/20/19 06:00 KBT2628 (Rec: 02/20/19 06:24 QHQ0236 TELE-C10) Document 02/20/19 14:00 IVX4359 (Rec: 02/20/19 14:10 WRK1363 TELE-C10) Document 02/20/19 20:54 PYV3269 (Rec: 02/20/19 20:55 YGN7445 TELE-C11) Document 02/21/19 06:00 WZW4700 (Rec: 02/21/19 06:04 BFR9471 TELE-C11) Document 02/21/19 13:45 AIR9424 (Rec: 02/21/19 13:45 QUY7511 TELE-C11) Eyes: No Scleral Icterus Ears/Nose/Mouth/Throat: NL Teeth, Lips, Gums, Clear Oropharnyx, Mucous Membranes Moist Neck: NL Appearance and Movements; NL JVP, Trachea Midline Cardiovascular: NL Sounds; No Murmurs; No JVD Respiratory: Clear to Auscultation Abdominal: NL Sounds; No Tenderness; No Distention Extremities: - - 2+ pedal edema. right arm in sling Neurological: Alert and Oriented x 3, - - forgetful but seems aware of situation. CN intact. right hip flexion 4-/5. sensation intact. 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 Pt seemed to understand she has cancer and memory issues. Son also seemed to comprehend the situation and was appropriately tearful during the conversation. Pt seemed reluctant to make a decision stating "do I have to decide now." We reviewed the MOLST form but again she wasn't sure what to chose. We spoke about quality of life and benefit vs burden. Pt would say alternating things like "I don't want to live like this" but then is considering CPR. Hospice information/brochure given. Pt has mild dementia, if she forgoes chemo according to son she has a 3 month life expectancy. Will follow up with pt and son tomorrow. Pt is eligible for hospice if she forgoes chemo. KPS 50%, PPS 50% - Time On Unit Date of Evaluation: 02/21/19 Hospice Consult Time in: 16:00 Hospice Consult Time Out: 17:30 Hospice Consult Time Total: 90 > 50% of Time Spend In Counseling or Coordinating Care: Yes
[2019-02-21] MEDS: Senna TAB 8.6 mg* TAB PO SCH (22:00)
[2019-02-22 05:57] LABS: ABS Monocytes 1.5 10^3/ul (0-0.8); ABS Neutrophils 15.3 10^3/ul (1.5-7.7); Hematocrit 28 % (35-47); Hematocrit for Retic CNT 28 % (35-47); Hemoglobin 9.1 g/dL (12.0-16.0); Lymphocyte % 5.6 %; Mean Corpuscular HGB Conc 33 g/dL (31-36); Mean Corpuscular Hemoglobin 27 pg (27-31); Mean Corpuscular Volume 82 fL (80-97); Mean Platelet Volume 7.4 fL (7.4-10.4); Nucleated Red Blood Cells % 0.1; Platelet Count 374 10^3/uL (150-450); RBC Retic Count 3.41 10^6/uL (3.70-4.87); Red Blood Count 3.41 10^6 /uL (3.70-4.87); Red Cell Distribution Width 22 % (10-15); White Blood Count 17.8 10^3/uL (3.5-10.8)
[2019-02-22 06:04] LABS: Corrected Retic Count 1.9 % (0.5-1.5); Immature Retic Fraction 0.47
[2019-02-22] MEDS: Levothyroxine TAB* 88 MCG TAB PO SCH (06:04)
[2019-02-22] MEDS: oxyCODONE TAB* 5 MG TAB PO PRN ×2 (06:07→20:41)
[2019-02-22] MEDS: Acetaminophen TAB* 325 MG PO SCH ×3 (07:39→20:40)
[2019-02-22] MEDS: Fludrocortisone Acetate TAB* 0.1 MG PO SCH (07:39)
[2019-02-22] MEDS ORDERED: Fludrocortisone Acetate TAB* 0.1 MG PO ONE (08:30)
--- NOTE | 2019-02-22 14:40 | PN ---
Progress Note - Progress Note Date of Service: 02/22/19 SOAP: Subjective: [] Objective: [] Gen: NAD, appears well RUE-dressing changed, incision is c/d/i, in sling, able to F/E wrist, +2 radial pulse, SILT distally Assessment: POD 4 S/P Right proximal humerus ORIF Plan: NWB RUE Remain in sling though no restriction of shoulder active or passive ROM Digit, wrist, elbow ROM Cont pain control as needed Dressing change by ortho daily Will likely need ANITA Will f/u with Dr. Mills 10-14 days post op Vital Signs Temp 98.2 F 02/22/19 11:15 Pulse 58 02/22/19 11:15 Resp 22 02/22/19 11:15 BP 92/47 02/22/19 11:15 Pulse Ox 94 02/22/19 11:15 Intake & Output 02/21/19 02/22/19 02/22/19 18:59 06:59 18:59 Intake Total 237 546 4484 Output Total 175 550 Balance 675 -219 1225 Weight 145 lb Intake: Oral 850 0 1225 Packed Cells 331 Output: Urine 175 550 Other: Estimated Void Medium Large # Bowel Movements 1 Estimated Stool Amount Small Medium Other Amount Description RBC infused 02/21/18 - see chart # Voids 2 1 Laboratory Last Values WBC 17.8 10^3/uL (3.5-10.8) H 02/22/19 05:30 RBC 3.41 10^6 /uL (3.70-4.87) L 02/22/19 05:30 RBC (Retic) 3.41 10^6/uL (3.70-4.87) L 02/22/19 05:30 Hgb 9.1 g/dL (12.0-16.0) L 02/22/19 05:30 Hct 28 % (35-47) L 02/22/19 05:30 HCT (Retic) 28 % (35-47) L 02/22/19 05:30 MCV 82 fL (80-97) 02/22/19 05:30 MCH 27 pg (27-31) 02/22/19 05:30 MCHC 33 g/dL (31-36) 02/22/19 05:30 RDW 22 % (10-15) H 02/22/19 05:30 Plt Count 374 10^3/uL (150-450) 02/22/19 05:30 MPV 7.4 fL (7.4-10.4) 02/22/19 05:30 Neut % (Auto) 85.9 % 02/22/19 05:30 Lymph % (Auto) 5.6 % 02/22/19 05:30 [place] % (Auto) 8.5 % 02/22/19 05:30 Eos % (Auto) 0.0 % 02/22/19 05:30 Baso % (Auto) 0.0 % 02/22/19 05:30 Absolute Neuts (auto) 15.3 10^3/ul (1.5-7.7) H 02/22/19 05:30 Absolute Lymphs (auto) 1.0 10^3/ul (1.0-4.8) 02/22/19 05:30 Absolute Monos (auto) 1.5 10^3/ul (0-0.8) H 02/22/19 05:30 Absolute Eos (auto) 0.0 10^3/ul (0-0.6) 02/22/19 05:30 Absolute Basos (auto) 0.0 10^3/ul (0-0.2) 02/22/19 05:30 Absolute Nucleated RBC 0.0 10^3/ul 02/22/19 05:30 Nucleated RBC % 0.1 02/22/19 05:30 ESR 94 mm/Hr (0-29) H 02/21/19 10:33 Retic Count, Calc 3.0 % (0.5-1.5) H 02/22/19 05:30 Corrected Retic Count 1.9 % (0.5-1.5) H 02/22/19 05:30 Retic Shift Factor 2.0 02/22/19 05:30 Retic Production Index 1.00 02/22/19 05:30 Immature Retic Fraction 0.47 02/22/19 05:30 Mean Retic Volume 126.8 02/22/19 05:30 Hem Pathologist Commnt 02/17/19 05:25 INR (Anticoag Therapy) 1.21 (0.82-1.09) H 02/18/19 04:31 Sodium 136 mmol/L (135-145) 02/19/19 07:13 Potassium 4.5 mmol/L (3.5-5.0) 02/19/19 07:13 Chloride 105 mmol/L (101-111) 02/19/19 07:13 Carbon Dioxide 22 mmol/L (22-32) 02/19/19 07:13 Anion Gap 9 mmol/L (2-11) 02/19/19 07:13 BUN 19 mg/dL (6-24) 02/19/19 07:13 Creatinine 0.75 mg/dL (0.51-0.95) 02/19/19 07:13 Est GFR ( Amer) 90.4 (>60) 02/19/19 07:13 Est GFR (Non-Af Amer) 74.7 (>60) 02/19/19 07:13 BUN/Creatinine Ratio 25.3 (8-20) H 02/19/19 07:13 Glucose 154 mg/dL (70-100) H 02/19/19 07:13 Hemoglobin A1c 6.3 % (4.0-5.6) H 02/11/19 17:51 Lactic Acid 1.2 mmol/L (0.5-2.0) 02/11/19 17:51 Uric Acid 5.4 mg/dL (2.3-6.6) 02/16/19 06:46 Calcium 8.2 mg/dL (8.6-10.3) L 02/19/19 07:13 Phosphorus 2.9 mg/dL (2.5-5.0) 02/16/19 06:46 Magnesium 2.1 mg/dL (1.9-2.7) 02/19/19 07:13 Iron < 20 ug/dL (50-212) L 02/12/19 08:27 TIBC 175 mcg/dL (250-450) L 02/12/19 08:27 % Saturation 11 % (15-55) L 02/12/19 08:27 Unsat Iron Binding < 160 ug/dL 02/12/19 08:27 Transferrin 125 mg/dL (203-362) L 02/12/19 08:27 Ferritin 1397.1 ng/mL (11-307) H 02/12/19 08:27 Total Bilirubin 0.50 mg/dL (0.2-1.0) 02/11/19 17:51 AST 40 U/L (13-39) H 02/11/19 17:51 ALT 36 U/L (7-52) 02/11/19 17:51 Alkaline Phosphatase 79 U/L (34-104) 02/11/19 17:51 Lactate Dehydrogenase 189 U/L (140-271) 02/16/19 06:46 Troponin I 0.01 ng/mL (<0.03) 02/11/19 23:44 B-Natriuretic Peptide 155 pg/mL (<=100) H 02/11/19 17:51 Total Protein 6.0 g/dL (6.4-8.9) L 02/11/19 17:51 Albumin 3.0 g/dL (3.2-5.2) L 02/11/19 17:51 Globulin 3.0 g/dL (2-4) 02/11/19 17:51 Albumin/Globulin Ratio 1.0 (1-3) 02/11/19 17:51 Vitamin B12 515 pg/mL (180-914) 02/12/19 08:27 Folate 12.22 ng/mL (>3.99) 02/12/19 08:27 TSH 2.92 mcIU/mL (0.34-5.60) 02/11/19 17:51 Free T4 1.30 ng/dL (0.61-1.12) H 02/11/19 17:51 Cortisol 17.51 mcg/dL 02/15/19 04:43 Urine Color [place]ril 02/12/19 19:45 Urine Appearance Cloudy 02/12/19 19:45 Urine pH 5.0 (5-9) 02/12/19 19:45 Ur Specific [place] 1.015 (1.010-1.030) 02/12/19 19:45 Urine Protein Negative (Negative) 02/12/19 19:45 Urine Ketones Negative (Negative) 02/12/19 19:45 Urine Blood 3+ (Negative) A 02/12/19 19:45 Urine Nitrate Negative (Negative) 02/12/19 19:45 Urine Bilirubin Negative (Negative) 02/12/19 19:45 Urine Urobilinogen Negative (Negative) 02/12/19 19:45 Ur Leukocyte Esterase 3+ (Negative) A 02/12/19 19:45 Urine WBC (Auto) 3+(>20/hpf) (Absent) A 02/12/19 19:45 Urine RBC (Auto) 3+(>10/hpf) (Absent) A 02/12/19 19:45 Ur Squamous Epith Cells Present (Absent) A 02/12/19 19:45 Urine Bacteria 1+ (Absent) A 02/12/19 19:45 Urine Glucose Negative (Negative) 02/12/19 19:45 Influenza A (Rapid) Negative (Negative) 02/12/19 07:04 Influenza B (Rapid) Negative (Negative) 02/12/19 07:04 Flow Intrp 2-8 Markers TNP 02/17/19 12:55 Flow Intrp 9-15 Marker 02/17/19 12:55 Flow Intrp 16+ Markers TNP 02/17/19 12:55 Blood Type O Positive 02/21/19 10:33 Antibody Screen Negative 02/21/19 10:33 Crossmatch See Detail 02/21/19 10:33
[2019-02-22] MEDS ORDERED: Furosemide TAB* 20 MG PO ONE (15:25)
--- NOTE | 2019-02-22 15:27 | PN ---
Subjective Date of Service: 02/22/19 Interval History: No acute events overnight. hgb up to 9.1 from 7.9 after transfusion 1 uprbc yesterday. Intermittently expresses that she feels terrible and with a despondent affect, needs frequent reminders about her diagnoses son Yasmany at bedside trying to decide on MOLST form. Did not complain of dizziness getting up with PT to chair. Family History: Unchanged from Admission Social History: Unchanged from Admission Past Medical History: Unchanged from Admission Objective Active Medications: Acetaminophen (Tylenol Tab*) 975 mg PO TID [facility] Last Admin: 02/22/19 13:16 Dose: 975 mg Docusate Sodium (Colace Cap*) 100 mg PO BID PRN PRN Reason: CONSTIPATION Last Admin: 02/17/19 22:08 Dose: 100 mg Fludrocortisone Acetate (Florinef Tab*) 0.3 mg PO DAILY [facility] Levothyroxine Sodium (Synthroid Tab*) 88 mcg PO 0600 [facility] Last Admin: 02/22/19 06:04 Dose: 88 mcg Magnesium Hydroxide (Milk Of Magnabi Liq*) 30 ml PO Q6H PRN PRN Reason: CONSTIPATION Last Admin: 02/16/19 20:08 Dose: 30 ml Midodrine (Midodrine) 15 mg PO TID [facility]; Protocol Last Admin: 02/22/19 13:16 Dose: 15 mg Ondansetron HCl (Zofran Inj*) 4 mg IV Q6H PRN PRN Reason: NAUSEA/VOMITING Last Admin: 02/14/19 18:13 Dose: 4 mg Oxycodone HCl (Roxycodone Tab*) 5 mg PO Q6H PRN PRN Reason: PAIN - MODERATE Last Admin: 02/22/19 06:07 Dose: 5 mg Prednisone (Deltasone 20 Mg Tab) 60 mg PO DAILY [facility] Stop: 02/26/19 10:59 Last Admin: 02/22/19 07:39 Dose: 60 mg Senna (Senokot 8.6 Mg Tab*) 1 tab PO BEDTIME [facility] Last Admin: 02/21/19 22:00 Dose: 1 tab Vital Signs - 8 hr 02/22/19 02/22/19 07:39 11:15 Temperature 98.2 F Pulse Rate 58 Respiratory 20 22 Rate Blood Pressure 92/47 (mmHg) O2 Sat by Pulse 94 Oximetry Oxygen Devices in Use Now: None Appearance: NAD Eyes: No Scleral Icterus Neck: NL Appearance and Movements; NL JVP Respiratory: Symmetrical Chest Expansion and Respiratory Effort Cardiovascular: NL Sounds; No Murmurs; No JVD Abdominal: NL Sounds; No Tenderness; No Distention Skin: - - 2+ edema in b/l legs Neurological: - - oriented to name but very forgetful, will repeat same question 4-5x in a 45 minute interview. Nutrition: Taking PO's Result Diagrams: 02/22/19 05:30 02/19/19 07:13 Additional Lab and Data: Laboratory Results - last 24 hr 02/21/19 02/22/19 10:33 05:30 WBC 17.8 H RBC 3.41 L RBC (Retic) 3.41 L Hgb 9.1 L Hct 28 L HCT (Retic) 28 L MCV 82 MCH 27 MCHC 33 RDW 22 H Plt Count 374 MPV 7.4 Neut % (Auto) 85.9 Lymph % (Auto) 5.6 Boyle % (Auto) 8.5 Eos % (Auto) 0.0 Baso % (Auto) 0.0 Absolute Neuts (auto) 15.3 H Absolute Lymphs (auto) 1.0 Absolute Monos (auto) 1.5 H Absolute Eos (auto) 0.0 Absolute Basos (auto) 0.0 Absolute Nucleated RBC 0.0 Nucleated RBC % 0.1 Retic Count, Calc 3.0 H Corrected Retic Count 1.9 H Retic Shift Factor 2.0 Retic Production Index 1.00 Immature Retic Fraction 0.47 Mean Retic Volume 126.8 Blood Type O Positive Antibody Screen Negative Crossmatch See Detail Microbiology and Other Data: Microbiology 02/19/19 12:26 Stool Stool Occult Blood (MICKEY) - Final 02/12/19 05:02 Blood Venous Aerobic Blood Culture - Final No Growth Day 5 02/12/19 05:02 Blood Venous Anaerobic Blood Culture - Final No Growth Day 5 02/12/19 05:05 Blood Venous Aerobic Blood Culture - Final No Growth Day 5 02/12/19 05:05 Blood Venous Anaerobic Blood Culture - Final No Growth Day 5 02/12/19 19:45 Urine Urine Culture - Final Escherichia Coli Assess/Plan/Problems-Billing 78 yo female H hypothyroidism, progressive dementia who was admitted 02/11/19 s/p fall with right humerus fracture and was found to be anemic and to have a retroperitoneal mass with biopsy results consistent with diffuse large B-cell lymphoma. Persistently hypotensive with dizziness (perhaps improvement 02/22) - Patient Problems (1) Diffuse large B cell lymphoma Current Visit: Yes Status: Acute Code(s): C83.30 - DIFFUSE LARGE B-CELL LYMPHOMA, UNSPECIFIED SITE SNOMED Code(s): 839660810 Comment: appreicate oncology recs. Pt and son still deciding about potential chemotherapy like mini-CHOP. Would need PET vs contrast CT c/a/p to complete staging if decide to pursue. Dr. Rai would like decision within 1-2 weeks as he has relayed a few month prognosis if left untreated. No SURG TECH involvement on MRI Brain w/ contrast. f/u palliatve care discussion. (2) Anemia Current Visit: Yes Status: Acute Code(s): D64.9 - ANEMIA, UNSPECIFIED SNOMED Code(s): 204656439 Comment: - Patient is newly anemic as of 11/2018. - CT abd/pelvis 02/15 with R psoas mass now biopsied and consistent with diffuse large B-Cell Lymphoma. - Hgb improved to 9.1 up from 7.9 yesterday after 1u prbc.(this is her 2nd total during this admission - LDH wnl - Retic count: RPI 1.0 - No current plan per heme onc for bone marrow biopsy. - Stool guaiac is negative. - Iron studies were indicative of anemia of chronic disease. She did get 5 doses of venofer earlier this admission. (3) Hypotension Current Visit: Yes Status: Acute Comment: - Ongoing. - Not symptomatic at rest, but symptomatic with changes in position (though seemingly less so today, perhaps with 1u prbc helping out) - Continue midodrine 15 mg TID and Florinef 0.3 mg(increased this AM) (4) Fall Current Visit: Yes Status: Acute Comment: - See above discussion. (5) Hypothyroid Current Visit: Yes Status: Acute Code(s): E03.9 - HYPOTHYROIDISM, UNSPECIFIED SNOMED Code(s): 90990154 Comment: - Continue synthroid at current dose. (6) Retroperitoneal mass Current Visit: Yes Status: Acute Code(s): R19.00 - INTRA-ABD AND PELVIC SWELLING, MASS AND LUMP, UNSP SITE SNOMED Code(s): 39263880 Comment: - Large (12cm in greatest demension) - In Iliopsoas muscle. - CT guided biopsy without complication - > diffuse large b-cell lymphoma on pathology - Lymphadenopathy associated - Weight loss, decreased appetite, AOCD. - of note has remote history of TB (7) Right humeral fracture Current Visit: Yes Status: Acute Code(s): S42.301A - UNSP FRACTURE OF SHAFT OF HUMERUS, RIGHT ARM, INIT SNOMED Code(s): 96144341 Comment: - S/P fall at home in her bathroom, likely due to orthostatis due to UTI and anemia. - POD #4 from ORIF performed on 02/18) - f/u with Dr. Mills as outpatient in 10-14 days - NWB RUE, maintain sling with no shoulder motion - PT and OT- ANITA rec (8) UTI (urinary tract infection) Current Visit: Yes Status: Acute Comment: - E coli UTI. - s/p ceftriaxone x 3 days and then 4 days of keflex 500mg BID. Completed . (9) DVT prophylaxis Current Visit: Yes Status: Acute Code(s): Z29.9 - ENCOUNTER FOR PROPHYLACTIC MEASURES, UNSPECIFIED SNOMED Code(s): 880920337 Comment: - SCDs in setting of anemia - negative LE dopplers (10) Full code status Current Visit: Yes Status: Acute Code(s): Z78.9 - OTHER SPECIFIED HEALTH STATUS SNOMED Code(s): 686490346 Comment: palliative care was also consulted. DNR may be more in line with sons stated wishes. Status and Disposition: Inpatient, would need rehab. Son seems to be leaning toward [facility].
[2019-02-22] MEDS: Senna TAB 8.6 mg* TAB PO SCH (20:40)
[2019-02-23] MEDS: oxyCODONE TAB* 5 MG TAB PO PRN (05:18)
[2019-02-23] MEDS: Levothyroxine TAB* 88 MCG TAB PO SCH (05:19)
[2019-02-23 06:47] LABS: Hematocrit 28 % (35-47); Hemoglobin 8.9 g/dL (12.0-16.0); Mean Corpuscular HGB Conc 32 g/dL (31-36); Mean Corpuscular Hemoglobin 27 pg (27-31); Mean Corpuscular Volume 84 fL (80-97); Mean Platelet Volume 7.4 fL (7.4-10.4); Platelet Count 430 10^3/uL (150-450); Red Blood Count 3.29 10^6 /uL (3.70-4.87); Red Cell Distribution Width 22 % (10-15); White Blood Count 17.3 10^3/uL (3.5-10.8)
[2019-02-23 06:50] LABS: ABS Lymphocytes 0.9 10^3/ul (1.0-4.8); ABS Monocytes 1.6 10^3/ul (0-0.8); ABS Neutrophils 14.8 10^3/ul (1.5-7.7); Eosinophil % 0.1 %; Lymphocyte % 5.3 %
[2019-02-23] MEDS: Fludrocortisone Acetate TAB* 0.1 MG PO SCH (09:17)
[2019-02-23] MEDS: Acetaminophen TAB* 325 MG PO SCH ×3 (09:18→22:07)
[2019-02-23] MEDS: Memantine TAB* 5 MG PO SCH (14:38)
[2019-02-23] MEDS: Donepezil TAB* 5 MG PO SCH (14:38)
--- NOTE | 2019-02-23 16:55 | DS ---
CC: Dr. Antonio Cooney; Dr. Keith Rai; Dr. Trista Mills * DATE OF ADMISSION: 02/12/2019. DATE OF DISCHARGE: 02/24/2019. PRIMARY CARE PHYSICIAN: Dr. Antonio Cooney. MY ATTENDING PHYSICIAN WHILE IN THE HOSPITAL: Dr. Kallie Landers * (dictated by MAHIN Burnett). PRIMARY DISCHARGE DIAGNOSES: Fall, hypotension, right humerus fracture, diffuse B- cell lymphoma effecting the iliopsoas muscle, deconditioning, anemia likely related to anemia of chronic disease. SECONDARY DIAGNOSES: Dementia, hypothyroidism. STUDIES DONE WHILE IN THE HOSPITAL: 1. Chest x-ray from 02/11/2019, read as: No evidence for active cardiopulmonary disease. Displaced fracture of the proximal right humerus. 2. Brain CT, read as: Age-related diffuse cerebral and cerebellar volume loss and chronic microvascular ischemic disease. No acute intracranial pathology. 3. Right shoulder x-ray, read as: Displaced fracture of the surgical neck of the humerus. 4. Transthoracic echocardiogram, read as: EF of 60 to 65 percent. No wall motion abnormality. Right ventricle mildly dilated. Mild mitral regurgitation with multiple jets. Tricuspid: There is mild regurgitation. 5. Carotid Doppler study, read as: Normal carotid ultrasound. 6. Chest, abdomen, and pelvis CT, read as: There is a small, 4 mm, left upper lobe pulmonary nodule. There are bilateral pleural effusions. There is retroperitoneal lymphadenopathy and a large mass present on the right side in the paravertebral region involving the psoas muscle. Differential diagnosis includes malignant lesions, such as retroperitoneal sarcoma and lymphoma. Anasarca. Displaced fracture of the proximal right humerus. 7. Repeat humerus x-ray, read as: Fracture surgical neck of the humerus displaced approximately one shafts width. 8. Brain MRI from 02/21/2019, read as: Diffuse involutional change. No abnormal enhancement, vasogenic edema, or space-occupying lesion suggesting metastatic disease. MEDICATIONS AT DISCHARGE: 1. Levothyroxine 88 mcg p.o. daily. 2. Tylenol 975 mg p.o. t.i.d. scheduled. 3. Docusate 100 mg p.o. b.i.d. 4. Fludrocortisone 0.3 mg p.o. daily. 5. Magnesium Hydroxide 30 ml p.o. q.6 hours as needed. 6. Midodrine 15 mg p.o. t.i.d. 7. Prednisone 60 mg p.o. daily for 3 more days. 8. Senna 8.6 mg p.o. at bedtime. 9. Donepezil 5 mg p.o. daily 10. Memantine 5 mg p.o. daily New medications at discharge: Tylenol, Docusate, Fludrocortisone, Milk of Magnesia, Midodrine, Prednisone, Senna, Donepezil, Memantine Medications discontinued at discharge: None. HOSPITAL COURSE: This is a brief summary to this patient's presentation. For more details, please see the history and physical from Dr. Dario Pratt on 2018. In brief, the patient is a 78-year-old female with a past medical history as stated above who has had a progressive decline in her functional status over approximately the last three years. She has gotten much worse over the last six months with regards to decreased memory and appetite with decreases in her weight. On the day of admission, the patient fell. It is unclear whether she lost consciousness. The patient was admitted to the hospital and put in a sling for her right arm. The patient had an evaluation. The patient's blood pressure was on the low side which is a chronic finding for her, but she had an echocardiogram and carotid Doppler study as above to assess the possibility of cardiac causes for syncope. None were found and no abnormalities on telemetry except for sinus tachycardia in response to activity were noted. As above, the patient was found to be anemic with a hemoglobin initially at 8.1, down from 10.8 in November of 2018 and 14.8 in August of 2017. The patient was transfused two units with no appreciable change in her blood pressure. The patient was also found to have a leukocytosis with neutrophilic predominance, as well as a severely elevated ESR and CRP. The patient's iron studies were consistent with anemia of chronic disease and no other obvious causes of her anemia were found. The patient was transfused a total of 3 units during her hospitalization. The patient was found to have a urinary tract infection, nobles sensitive E. coli on 02/12/2019 and completed seven days of antibiotics. The patient had a chest and pelvis CT as further evaluation of her anemia and was found to have a large mass in her iliopsoas muscle which was biopsied on 02/17/2019. The patient, given the chronicity of her hypotension and the lack of other reasons not to have surgery, as well as persistent displacement of her right shoulder, was taken for surgery with Dr. Trista Mills on 02/18/2019 for an ORIF of her right humerus which was performed without complication. The patient was initially started on Midodrine which did not help her blood pressure. She was then transitioned to Florinef which had minimal effect and then Midodrine was added on additionally with again minimal effects on her blood pressure. The patient, however, became less symptomatic throughout her hospitalization. Initially being dizzy on standing with this becoming less prominent through her hospitalization. The pathology on the patient's biopsy became available on 02/21/2019 revealing diffuse B-cell lymphoma and the patient was seen in consultation with Dr. Keith Rai who recommended a mini- CHOP regimen for her cancer if she wanted. The patient was also seen in consultation by Dr. Allie Katz of Palliative Care and the family was still undecided about what the treatment plan should be with regards to chemotherapy. The patient was found rehabable needs and was accepted to [facility] for rehab on 02/23/2019. PHYSICAL EXAMINATION ON THE DAY OF DISCHARGE: General: The patient is a 78-year - old female who appears stated age and is sitting in bed, in no acute distress. Vital Signs at the time of evaluation: Temperature 98.2, pulse rate 73, respiratory rate 20, oxygen saturation 95 percent on room air, blood pressure 92/53. HEENT: Head normocephalic, atraumatic. Sclerae anicteric. No conjunctival injection. Nasal mucosa moist. Oral mucosa moist. No pharyngeal erythema, discharge, or exudate. Neck: Supple, nontender. No lymphadenopathy. No carotid bruits auscultated. No JVD. Cardiac: Regular rate and rhythm. No clicks, murmurs, gallops, or rubs. Pulses are 2+ in the bilateral dorsalis pedis, posterior tibialis, and radial areas. 3+ bilateral lower extremity edema. Respiratory: Clear to auscultation bilaterally. No wheezes, rales, or rhonchi. Good air exchange bilaterally. Abdomen: Soft, nontender, nondistended. Bowel sounds present. Normoactive in all four quadrants. No hepatosplenomegaly. No abdominal bruits auscultated. No hepatojugular reflux. Genitourinary: No suprapubic or CVA tenderness. Skin: Clean, dry, and intact. No rash. Musculoskeletal: Right arm in a sling. Able to move three other extremities without restriction. Neuro: Cranial nerves II through XII intact. No focal deficits. Alert and oriented times three. Very forgetful. Psychiatric: Somewhat dysthymic. DISCHARGE PLAN BY PROBLEM: 1. Diffuse B-cell lymphoma: The patient is still deciding on whether or not she wants chemotherapy for this. The patient should follow-up with Dr. Rai in two to three weeks for decision on whether or not this would be advantageous for her goals of care. The patient was started on Prednisone 60 mg for five days. Will have three more days after discharge. This should end on the 26 of February. 2. Humerus fracture: This has been repaired with an ORIF. The patient should stay in a sling and follow-up with Orthopedics one week after discharge. The patient will undergo rehab during that time for deconditioning and occupational therapy related to not using her right arm. 3. Hypotension: The patient's hypotension has been chronic for her and there has been minimal improvement with her medications; however, the patient does appear to be somewhat less symptomatic and these medications will be continued at this time. 4. Lower extremity edema: This is likely related to medications and activity. The patient will be treated with compressions, elevation, and activity will be encouraged. 5. Dementia: The patient has moderate dementia, likely Alzheimer's related. A medication trial of memantine and donepezil has been agreed upon by patient and her son. 6. Anemia: The patient's anemia is likely related to her lymphoma. The patient's hemoglobin today is 8.9. The patient should be transfused to a goal above 8 due to her symptomaticity. The patient should follow-up with Hematology /Oncology for a repeat CBC at her follow-up in two to three weeks. The patient received 1 gm of IV iron while she was an inpatient, as well as 3 units of blood. 7. UTI: This has been resolved with treatment. DISPOSITION: To [facility]. CONDITION ON DISCHARGE: Stable. TIME SPENT: Approximately 75 minutes were spent on the discharge of this patient, 30 of which was spent [id number] with the patient and her family obtaining history and physical and discussing treatment plan. MAHIN BURNETT [id number]/[facility] #: [id number] ADRIANA
[2019-02-23] MEDS: Senna TAB 8.6 mg* TAB PO SCH (22:07)
[2019-02-24 00:36] LABS: BUN/Creatinine Ratio 41.2 (8-20); Calcium 8.5 mg/dL (8.6-10.3); EGFR African American 101.3 (>60); EGFR Non-African American 83.7 (>60); Potassium 4.8 mmol/L (3.5-5.0)
[2019-02-24] MEDS: Levothyroxine TAB* 88 MCG TAB PO SCH (06:20)
[2019-02-24] MEDS: Acetaminophen TAB* 325 MG PO SCH ×2 (08:30→13:04)
[2019-02-24] MEDS: Fludrocortisone Acetate TAB* 0.1 MG PO SCH (08:32)
[2019-02-24] MEDS: Memantine TAB* 5 MG PO SCH (08:35)
[2019-02-24] MEDS: Donepezil TAB* 5 MG PO SCH (08:35)
[2019-02-24 12:42] VITALS: BP 94/50
--- NOTE | 2019-02-24 13:36 | PN ---
Progress Note - Progress Note Date of Service: 02/24/19 SOAP: Subjective: []Pt seen at bedside, only complaint is her "soul hurts". RUE pain not painful at rest, feels very heavy Objective: []Gen: NAD, appears well RUE-dressing changed, incision is c/d/i, in sling, able to F/E wrist, +2 radial pulse, SILT distally Assessment: S/P Right proximal humerus ORIF Plan: NWB RUE Remain in sling though no restriction of shoulder active or passive ROM Digit, wrist, elbow ROM Cont pain control as needed Dressing change every other day/ prn Will likely need ANITA, going to CR today Will f/u with Dr. Mills 10-14 days post op
--- NOTE | 2019-02-24 17:22 | PN ---
Progress Note - Progress Note Date of Service: 02/23/19 SOAP: Subjective: []Shoulder pain improved but still and issues. More edema in legs, feels weak. Planning discharge to NH. Son continues current support. Objective: [] Vital Signs Temp Pulse Resp BP Pulse Ox 97.7 F 71 20 94/50 95 02/24/19 11:30 02/24/19 11:30 02/24/19 11:30 02/24/19 11:30 02/24/19 11:30 HEENT: pale, no LAD shoudler in brace RRR S1S2 +BS no wheezing NT ND, limited exam +2 SIERRA LE strength 4/5 Assessment: []78 yeaer old dementia and DLBCL. On short course Prednisone. Plan: []1. Continue Prednisone x 5 days and stop 2. Agree with NHP and rehab 3. No decision on treatment or hospice 4. Recommend follow up in clinic in 3 weeks.
== END 2019-02-24 13:56 | DRG 493 ==
LOC: ED 16:42 → MEDTELE 02-12 03:31
PROVIDERS: ADMIT Internal Medicine; ATTEND Internal Medicine
PROC: 30233N1 Transfusion of Nonautologous Red Blood Cells into Peripheral Vein, Percutaneous Approach (ICD-10-PCS; 2019-02-13)
PROC: 0KBF3ZX Excision of Right Trunk Muscle, Percutaneous Approach, Diagnostic (ICD-10-PCS; 2019-02-17)
PROC: 0PSF04Z Reposition Right Humeral Shaft with Internal Fixation Device, Open Approach (ICD-10-PCS; principal; 2019-02-18 14:15)
DX: S42.201A Unspecified fracture of upper end of right humerus, initial encounter for closed fracture (principal); N39.0 Urinary tract infection, site not specified; C83.36 Diffuse large B-cell lymphoma, intrapelvic lymph nodes; Z66 Do not resuscitate; F03.90 Unspecified dementia, unspecified severity, without behavioral disturbance, psychotic disturbance, mood disturbance, and anxiety; I95.9 Hypotension, unspecified; E03.9 Hypothyroidism, unspecified; B96.20 Unspecified Escherichia coli [E. coli] as the cause of diseases classified elsewhere; W19.XXXA Unspecified fall, initial encounter; D63.0 Anemia in neoplastic disease; Y92.9 Unspecified place or not applicable; Z79.890 Hormone replacement therapy
CPT/HCPCS: 36415; 49180; 70450; 70553; 71045; 71250; 74176; 76000; 77012; 80048; 80053; 81003; 81015; 82272; 82533; 82607; 82728; 82746; 83036; 83540; 83550; 83605; 83615; 83735; 83880; 84100; 84439; 84443; 84484; 84550; 85014; 85018; 85025; 85027; 85045; 85060; 85610; 85652; 86850; 86900; 86901; 86922; 87040; 87077; 87086; 87186; 88172; 88173; 88184; 88187; 88188; 88189; 88305; 88341; 88342; 88377; 93005; 93306; 93880; 93970; 99223; 99232; 99285; A9270-GY; A9579; C1713; C1776; G8978-GP-CL; G8979-GP-CI; J0690; J0696; J1100; J1756; J1885; J2250; J2270; J2405; J2704; J3010; J3475; J7512; P9040